=== PATIENT | female | born 1950 | race Caucasian/White ===

== ENCOUNTER 2019-09-16 08:37 | Day surgery (SDC) | payer OTHER ==
--- OUTSIDE RECORDS SUMMARY | 2019-09-16 08:40 | XMS REPORT ---
:1950 [facility] [address] [place] [address] Dr. Alcantara [address] [place] [id number] Care Team Providers Name Role Phone NIRANJAN BRAY Unavailable Unavailable Problems This patient has no known problems. Allergies, Adverse Reactions, Alerts This patient has no known allergies or adverse reactions. Medications This patient has no known medications. Results Test Description Test Time Test Comments Text Results Atomic Results Result Comments MISCELLANEOUS LAB ORDER 2016-10-18 11:43:00 Test Item Value Reference Range Comments SCAN RESULT (test [id number]) IMMUNOGLOBULIN M (IGM)2016-10-14 16:04:00 Test Item Value Reference Range Comments IMMUNOGLOBULIN M (IGM) (BEAKER) (test wgep=292) 78 mg/dL 22-293
[2019-09-16] MEDS ORDERED: CEFAZOLIN/SWI 1gm 1 GM/10 ML SYR ONE (08:45)
[2019-09-16] MEDS ORDERED: Ringers Lactate 1,000 ML IV ONE (08:45)
[2019-09-16 08:59] VITALS: BP 126/69; TEMP 96.9; O2SAT 98
[2019-09-16 08:59] LABS: Potassium 3.8 mmol/L (3.5-5.1)
[2019-09-16] MEDS ORDERED: LIDOCAINE 1% MPF 5 ML VIAL ONE (09:15)
--- NOTE | 2019-09-16 09:17 | RAD REPORT ---
EXAM DESCRIPTION: Lillie Banegas And Lat (2 Views)09/16/2019 8:40 am CLINICAL HISTORY: Preop for temporal artery biopsy COMPARISON: 2017 FINDINGS: Moderate diffuse interstitial lung opacities without change appear chronic The lungs appear clear of acute infiltrate. The heart is normal size IMPRESSION: No acute abnormalities displayed
[2019-09-16] MEDS ORDERED: MIDAZOLAM HCL 2 MG/2 ML INJ ONE (09:31)
[2019-09-16] MEDS ORDERED: propofoL 200 MG/20 ML VIAL IV ONE (09:31)
[2019-09-16] MEDS ORDERED: FENTANYL CITR 100 MCG/2 ML ONE (09:31)
[2019-09-16] MEDS ORDERED: LIDOCAINE 2% MPF 5 ML VIAL ONE (09:36)
[2019-09-16] MEDS ORDERED: ONDANSETRON 4 MG/2 ML VIAL ONE (09:58)
[2019-09-16] MEDS ORDERED: TRAMADOL 37.5mg/APAP 325mg PER TAB ONE (10:42)
--- NOTE | 2019-09-16 11:36 | EKG ---
Test Date: 2019-09-16 Test Time: 08:19:32 Police Manager: EAN MEASUREMENT RESULTS: Intervals: Rate: 64 NE: 182 QRSD: 86 QT: 400 QTc: 412 [place]: P: 60 NE: 182 QRS: 68 T: 66 INTERPRETIVE STATEMENTS: Normal sinus rhythm Possible Left atrial enlargement Borderline ECG No previous ECG available for comparison Electronically Signed On 09-16-19 11:35:53 BAKED AND GRAPHITE INSPECTOR by Pancho Ricardo
--- NOTE | 2019-09-16 19:23 | OP ---
Date of Procedure: 09/16/2019 Surgeon: Fracisco Jeter MD Preoperative Diagnosis: Rule out temporal arteritis, left side vision change. Postoperative Diagnosis: Rule out temporal arteritis, left side vision change. Procedure: Left temporal artery biopsy, Doppler guided. Estimated Blood Loss: Minimal. Specimen: Left temporal artery. Findings: As above. Anesthesia: MAC. Complications: None. Disposition: Patient tolerated the procedure in stable condition, taken to Recovery in good general condition. Procedure In Detail: Patient was brought to the OR and placed in supine position. MAC was begun. P atient was prepped and draped in usual sterile fashion. Doppler device used to isolate a branch of t he temporal artery in the anterior and superior aspect of the left ear and then lidocaine 1% infiltra rebeca locally. A 4 cm incision was made. Subcutaneous tissue was divided and branches of temporal art ping was identified. Proximal and distal control obtained. A 4 cm segment excised sent to Pathology. Then, 4-0 silk was used to tie both ends. Wound irrigated and bleeding controlled with cautery. 4 -0 chromic used to approximate subcutaneous tissue and close the skin. Sterile dressing was applied. Patient was awakened and taken to Recovery in good general condition. /MODL Voice ID: [id number] Report ID: [id number]
--- NOTE | 2019-09-16 19:29 | DS ---
Date of Discharge: 09/16/2019 Patient will go to Day Surgery and home when stable. Disposition: Home. Condition: Stable. Discharge Instructions: Resume home medications and diet. Activity as tolerated. No heavy lifting. Remove outer dressing in 2 days. Shower. Keep wound clean and dry. Keep Steri-Strips on at all t imes. Ultracet 1 tablet p.o. q.4 p.r.n. pain. Follow up in my office in 2 week. Call for appointme nt. Follow with Dr. Lin in 1 week and keep Steri-Strips on at all times. /MODL Voice ID: [id number] Report ID: [id number]
== END 2019-09-16 11:34 | disposition home or self-care (01) ==
LOC: OR 08:37
PROVIDERS: ATTEND Surgery
PROC: 03BT0ZX Excision of Left Temporal Artery, Open Approach, Diagnostic (ICD-10-PCS; principal; 2019-09-16 09:00)
DX: H53.9 Unspecified visual disturbance (principal); K74.5 Biliary cirrhosis, unspecified; K21.9 Gastro-esophageal reflux disease without esophagitis; E07.9 Disorder of thyroid, unspecified; F32.9 Major depressive disorder, single episode, unspecified; Z88.6 Allergy status to analgesic agent; Z80.1 Family history of malignant neoplasm of trachea, bronchus and lung; Z80.3 Family history of malignant neoplasm of breast; Z82.49 Family history of ischemic heart disease and other diseases of the circulatory system
CPT/HCPCS: 93005; 80048; 36415; 88305; 71046; 37609; J2704; J2250; J3010; J0690; J7120; J2405

== ENCOUNTER 2023-07-20 21:44 | Inpatient (IN) | payer OTHER ==
[2023-07-20 22:57] LABS: Absolute Lymphocytes (CBC) 0.8 K/uL (0.7-4.9); Lymphocytes % 7.9 % (15.3-44.8); MCV 94.1 fL (80-100); MPV 7.5 fL (7.6-11.3); Platelets 261 thou/uL (152-406)
[2023-07-20] MEDS ORDERED: VANCOMYCIN 1 GM/VIAL ONE (22:57)
[2023-07-20] MEDS ORDERED: HYDROCORTISONE SUC 100 MG INJ ONE (22:58)
[2023-07-20] MEDS ORDERED: FAMOTIDINE 20 MG/2 ML VIAL IV ONE (22:58)
[2023-07-20] MEDS ORDERED: NA CHLORIDE 0.9% 100 ML ONE (22:58)
[2023-07-20] MEDS ORDERED: NA CHLORIDE 0.9% 1,000 ML ONE (22:58)
[2023-07-20] MEDS ORDERED: NA CHLORIDE 0.9% 250 ML ONE (22:58)
[2023-07-20] MEDS ORDERED: LEVALBUTEROL 1.25 MG/3 ML NEB ONE (22:58)
[2023-07-20] MEDS ORDERED: NA CHLORIDE 0.9% 500 ML ONE (22:58)
[2023-07-20] MEDS ORDERED: CEFTRIAXONE 2000 MG/VIAL ONE (22:58)
[2023-07-20] MEDS ORDERED: Levofloxacin 750mg IV 750 MG/150 ML BAG IV ONE (22:59)
--- NOTE | 2023-07-20 23:00 | EDPHYS ---
Physician Documentation [facility] Name: Katheryn Vance Age: 73 yrs Sex: Female : 1950 Arrival Date: 07/20/2023 Time: 21:44 Bed 2 Private MD: Arturo Ibarra ED Physician Graham Davis HPI: 07/20 22:49 This 73 yrs old Female presents to ER via Wheelchair with complaints of celesitne Cough, Breathing Difficulty, Congestion. 22:49 The patient or guardian reports airway noise, cough, difficulty breathing. Onset: The celestine symptoms/episode began/occurred 5 day(s) ago. Historical: - Allergies: 22:14 Hydrocodone-Acetaminophen; cm10 22:14 Prednisone; cm10 - PMHx: 22:14 Autoimmune disorder; Degenerative disc disease; Depression; GERD; Hypothyroidism; cm10 PRIMARY BILIARY CIRRHOSIS; - Immunization history:: Adult Immunizations up to date. - Social history:: Smoking status: Patient denies any tobacco usage or history of. ROS: 22:51 Constitutional: Negative for fever, chills, and weight loss, Eyes: Negative for injury, celestine pain, redness, and discharge, ENT: Negative for injury, pain, and discharge, Neck: Negative for injury, pain, and swelling, Abdomen/GI: Negative for abdominal pain, nausea, vomiting, diarrhea, and constipation, Back: Negative for injury and pain, : Negative for injury, bleeding, discharge, and swelling, MS/Extremity: Negative for injury and deformity, Skin: Negative for injury, rash, and discoloration, Neuro: Negative for headache, weakness, numbness, tingling, and seizure, Psych: Negative for depression, anxiety, suicide ideation, homicidal ideation, and hallucinations, Allergy/Immunology: Negative for hives, rash, and allergies, Endocrine: Negative for neck swelling, polydipsia, polyuria, polyphagia, and marked weight changes, 22:51 Cardiovascular: Positive for chest pain, palpitations, 22:51 Respiratory: Positive for cough, shortness of breath, at rest. Exam: 22:51 Constitutional: This is a well developed, well nourished patient who is awake, alert, celestine and in no acute distress. Head/Face: Normocephalic, atraumatic. Eyes: Pupils equal round and reactive to light, extra-ocular motions intact. Lids and lashes normal. Conjunctiva and sclera are non-icteric and not injected. Cornea within normal limits. Periorbital areas with no swelling, redness, or edema. ENT: Nares patent. No nasal discharge, no septal abnormalities noted. Tympanic membranes are normal and external auditory canals are clear. Oropharynx with no redness, swelling, or masses, exudates, or evidence of obstruction, uvula midline. Mucous membranes moist. Neck: Trachea midline, no thyromegaly or masses palpated, and no cervical lymphadenopathy. Supple, full range of motion without nuchal rigidity, or vertebral point tenderness. No Meningismus. Chest/axilla: Normal chest wall appearance and motion. Nontender with no deformity. No lesions are appreciated. Abdomen/GI: Soft, non-tender, with normal bowel sounds. No distension or tympany. No guarding or rebound. No evidence of tenderness throughout. Back: No spinal tenderness. No costovertebral tenderness. Full range of motion. Female : Normal external genitalia. Skin: Warm, dry with normal turgor. Normal color with no rashes, no lesions, and no evidence of cellulitis. MS/ Extremity: Pulses equal, no cyanosis. Neurovascular intact. Full, normal range of motion. Neuro: Awake and alert, GCS 15, oriented to person, place, time, and situation. Cranial nerves II-XII grossly intact. Motor strength 5/5 in all extremities. Sensory grossly intact. Cerebellar exam normal. Normal gait. Psych: Awake, alert, with orientation to person, place and time. Behavior, mood, and affect are within normal limits. 22:51 Cardiovascular: Rate: tachycardic, actual rate is 120 bpm, Rhythm: regular, Pulses: Pulses are 4+ in bilateral radial, brachial, femoral, popliteal, posterior tibial and and dorsalis pedis arteries.. Heart sounds: normal, Edema: is not appreciated, JVD: is not appreciated, 22:51 ECG was reviewed by the Attending Physician. 22:56 Respiratory: mild respiratory distress is noted, Respirations: labored breathing, that celestine is mild, Breath sounds: bronchial sounds, that are moderate, are scattered, decreased breath sounds, that are moderate, are scattered, are heard in the right posterior upper lobe and right posterior middle lobe, rhonchi, that are mild, are scattered, Respiratory rate: 22 22:56 Musculoskeletal/extremity: DVT Exam: No signs of deep vein thrombosis. no pain, no swelling, no tenderness, negative Homans' sign noted on exam, no appreciated bluish discoloration, no erythema, no increased warmth, Vital Signs: 22:13 BP 140 / 82; Pulse 131; Resp 22; Temp 99.2; Pulse Ox 84% ; Weight 58.06 kg; Height 5 cm10 ft. 2 in. ; 07/21 00:00 BP 135 / 78; Pulse 131; Resp 38; Pulse Ox 92% on 4 lpm NC; tm6 07/20 22:13 Body Mass Index 23.41 (58.06 kg, 157.48 cm) cm10 [place]lin Coma Score: 07/20 22:56 Eye Response: spontaneous(4). Motor Response: obeys commands(6). Verbal Response: celestine oriented(5). Total: 15. MDM: 22:19 Patient medically screened. celestine 22:54 Data reviewed: vital signs, nurses notes, lab test result(s), EKG, radiologic studies, celestine plain films. Consideration of Admission/Observation Patient was admitted/placed on observation. Escalation of care including admission/observation considered. I considered the following discharge prescriptions or medication management in the emergency department Medications were administered in the Emergency Department. See MAR. Test considered but Not performed: Ultrasound no 2 d ccho. Historians other than the Patient: Spouse/Significant Other: well informed. Care significantly affected by the following chronic conditions: Hypertension, auto immune, ddd, gerd, hypothyroid. 22:56 Counseling: I had a detailed discussion with the patient and/or guardian regarding the [facility] historical points, exam findings, and any diagnostic results supporting the discharge/admit diagnosis, lab results, radiology results, the need for further work-up and treatment in the hospital. 07/20 22:22 Order name: Basic Metabolic Panel; Complete Time: 23:25 [facility] 07/20 22:22 Order name: CBC with Diff; Complete Time: 23: [facility] 07/20 22:22 Order name: LFT's; Complete Time: 23:25 [facility] 07/20 22:22 Order name: Magnesium; Complete Time: 23:25 [facility] 07/20 22:22 Order name: NT PRO-BNP; Complete Time: 23:25 [facility] 07/20 22:22 Order name: PT-INR; Complete Time: 23: [facility] 07/20 22:22 Order name: Troponin HS; Complete Time: 23:25 [facility] 07/20 22:22 Order name: Lipase; Complete Time: 23:25 [facility] 07/20 22:22 Order name: Blood Culture Adult (2) [facility] 07/20 22:22 Order name: Lactate w/ 2H reflex if indic.; Complete Time: 04:32 [facility] 07/20 22:22 Order name: SARS RAPID [facility] 07/20 22:22 Order name: Flu [facility] 07/20 22:29 Order name: COVID-19/FLU A+B; Complete Time: 23:25 07/20 22:57 Order name: ABG; Complete Time: 04:32 [facility] 07/21 04:36 Order name: CBC with Automated Diff; Complete Time: 04:40 [facility] 07/21 04:49 Order name: Troponin High Sensitivity [facility] 07/21 04:50 Order name: Basic Metabolic Panel [facility] 07/21 04:50 Order name: NT PRO-BNP [facility] 07/21 13:30 Order name: Troponin High Sensitivity [facility] 07/20 22:22 Order name: XRAY Chest (1 view) [facility] 07/20 22:48 Order name: CT Chest For PE Angio [facility] 07/20 22:22 Order name: EKG; Complete Time: 22:23 [facility] 07/20 23:04 Order name: CONS Physician Consult [facility] 07/21 04:34 Order name: EKG; Complete Time: 04:35 [facility] 07/20 22:22 Order name: Cardiac monitoring; Complete Time: 22:52 [facility] 07/20 22:22 Order name: EKG - Nurse/Tech; Complete Time: 23:15 [facility] 07/20 22:22 Order name: IV Saline Lock; Complete Time: 22:52 [facility] 07/20 22:22 Order name: Labs collected and sent; Complete Time: 22:52 [facility] 07/20 22:22 Order name: O2 Per Protocol; Complete Time: 22:52 [facility] 07/20 22:22 Order name: O2 Sat Monitoring; Complete Time: 23:15 [facility] 07/20 22:51 Order name: IV Saline Lock - Large Bore; Complete Time: 22:52 [facility] 07/21 04:34 Order name: EKG - Nurse/Tech; Complete Time: 04:38 [facility] EC:51 Rate is 126 beats/min. Rhythm is regular. QRS [place] is Normal. MO interval is normal. celestine QRS interval is normal. QT interval is normal. No Q waves. T waves are Normal. No ST changes noted. Clinical impression: LVH and Sinus tachycardia. Interpreted by me. Reviewed by me. Administered Medications: 22:40 CANCELLED (Duplicate Order): [id number] mg 100 ml IVPB once over 60 mins celestine 23:13 Drug: Solu-CORTEF IVP 100 mg IVP once Route: IVP; Site: left antecubital; rv 07/21 01:39 Follow up: Response: No adverse reaction rv 07/20 23:14 CANCELLED (not appropriate at this timee): acetaminophenliquid 15 mg/kg PO once; not to rv exceed 1000 mg 23:14 Drug: Levalbuterol Inhalation 2.5 mg Inhalation once Route: Inhalation; rv 23:14 Drug: Ipratropium Inhalation Aerosol 0.5 mg Inhalation once Route: Inhalation; rv 07/21 00:49 Follow up: Response: No adverse reaction rv 00:49 Follow up: Response: No adverse reaction rv 07/20 23:14 Drug: Famotidine IVP 20 mg IVP once; dilute with 10 mL 0.9% NaCl; give over 2 minutes rv Route: IVP; Site: left antecubital; 07/21 00:48 Follow up: Response: No adverse reaction rv 07/20 23:14 Drug: levofloxacin IVPB 750 mg 150 ml IVPB once over 90 mins Volume: 150 ml; Route: rv IVPB; Infused Over: 90 mins; Site: right forearm; 07/21 00:54 Follow up: Response: No adverse reaction; IV Status: Completed infusion; IV Intake: rv 150ml 07/20 23:14 Drug: Rocephin IV 2 grams IV at per protocol once; Given slow IV push per pharmaE-Sign rv instructions Route: IV; Rate: per protocol; Site: left antecubital; 07/21 00:48 Follow up: IV Status: Completed infusion; IV Intake: 100ml rv 00:48 Follow up: Response: No adverse reaction rv 07/20 23:14 Drug: NS 0.9% IV 500 ml IV at bolus once Route: IV; Rate: bolus; Site: left antecubital;rv 07/21 00:49 Follow up: IV Status: Completed infusion; IV Intake: 500ml rv 07/20 23:15 Drug: NS 0.9% IV (20 ml/kg) 20 ml/kg IV at 1 bolus once Route: IV; Rate: 1 bolus; Site: rv left antecubital; 07/21 00:49 Follow up: IV Status: Completed infusion; IV Intake: 1100ml rv 00:54 Drug: vancoMYCIN IVPB 1 grams IVPB once over 2 hrs Route: IVPB; Infused Over: 2 hrs; rv Site: right forearm; 01:39 Follow up: IV Status: Infusion continued upon admission rv 01:40 Follow up: IV Status: Infusion continued upon admission rv 00:55 Drug: NS 0.9% IV 1000 ml IV at 125 ml/hr continuous Route: IV; Rate: 125 ml/hr; Site: rv right forearm; 01:40 Follow up: IV Status: Infusion continued upon admission rv 04:46 Drug: Magnesium Sulfate IVPB 1 grams IVPB once over 1 hrs Route: IVPB; Infused Over: 1 tm6 hrs; Site: right antecubital; 04:46 Drug: Digoxin IVP 0.5 mg IVP once Route: IVP; Site: right antecubital; tm6 04:46 Drug: Metoprolol PO 25 mg PO once Route: PO; tm6 Disposition Summary: 07/20/23 22:59 Hospitalization Ordered Notes: Hospitalization Status: Inpatient Admission celestine Provider: Arturo Ibarra celestine Condition: Fair celestine Problem: new celestine Symptoms: have improved celestine Bed/Room Type: Standard celestine Location: Telemetry/MedSurg (Inpatient)(07/21/23 18:24) kb3 Room Assignment: [facility](07/21/23 19:45) kl Diagnosis - Pneumonia due to other specified bacteria - bilateral, right greater than left celestine - Fever, unspecified celestine - Dyspnea celestine Forms: - Medication Reconciliation Form celestine - SBAR form celestine - Leadership Thank You Letter celestine Signatures: Dispatcher [employer] Jenna Hernandez RN RN kl Anderson, Corey, MD MD cha Aguilar, Jose RN RN ja1 Travis Whitmore RN RN rv Hilary Romero RN RN kb3 Elba Pedroza RN RN cm10 Nolan Kingston RN RN tm6 Kristen Workman pm6 Corrections: (The following items were deleted from the chart) 07/20 22:40 22:22 levofloxacin IVPB 500 mg 100 ml IVPB once over 60 mins ordered. celestine celestine 23:14 22:22 Acetaminophen PO Liquid 15 mg/kg PO once; not to exceed 1000 mg ordered. celestine rv 23:51 22:59 Telemetry/MedSurg (Inpatient) celestine pm6 23:51 22:59 celestine pm6 07/21 18:24 07/20 23:51 [facility] ER HOLD pm6 07/21 18:24 07/20 23:51 ERHOLD- pm6 1 07/21 18:24 18:24 Telemetry/MedSurg (Inpatient) ja1 kb3 18:24 18:24 220 ja1 kb3 19:45 18:24 220 kb3 kl
--- NOTE | 2023-07-20 23:00 | ER ---
Nurse's Notes [facility] Name: Katheryn Vance Age: 73 yrs Sex: Female : 1950 Arrival Date: 07/20/2023 Time: 21:44 Bed 2 Private MD: Arturo Ibarra Diagnosis: Pneumonia due to other specified bacteria-bilateral, right greater than left;Fever, unspecified;Dyspnea Presentation: 07/20 22:13 Chief complaint: Patient states: sore throat, cough and shortness of breath onset last cm10 week. pt states that she has been more fatigued. Coronavirus screen: Client denies travel out of the [place] in the last 14 days. Ebola Screen: Patient denies travel to an Ebola-affected area in the 21 days before illness onset. No symptoms or risks identified at this time. Initial Sepsis Screen: Does the patient meet any 2 criteria? No. Patient's initial sepsis screen is negative. Does the patient have a suspected source of infection? No. Patient's initial sepsis screen is negative. Risk Assessment: Do you want to hurt yourself or someone else? Patient reports no desire to harm self or others. Onset of symptoms was July 20, 2023. 22:13 Method Of Arrival: Wheelchair cm10 22:13 Acuity: TERRY 2 cm10 Triage Assessment: 07/21 01:41 General: Appears comfortable. Respiratory: Reports shortness of breath at rest Onset: rv The symptoms/episode began/occurred gradually, the patient has mild shortness of breath. Historical: - Allergies: 07/20 22:14 Hydrocodone-Acetaminophen; cm10 22:14 Prednisone; cm10 - PMHx: 22:14 Autoimmune disorder; Degenerative disc disease; Depression; GERD; Hypothyroidism; cm10 PRIMARY BILIARY CIRRHOSIS; - Immunization history:: Adult Immunizations up to date. - Social history:: Smoking status: Patient denies any tobacco usage or history of. Screenin/08 01:40 [facility] ED Fall Risk Assessment (Adult) History of falling in the last 3 months, rv including since admission No falls in past 3 months (0 pts) Score/Fall Risk Level 0 - 2 = Low Risk Oriented to surroundings, Maintained a safe environment, Educated pt \T\ family on fall prevention, incl call for assistance when getting out of bed, Assessed \T\ reinforced patient's understanding of fall precautions. Abuse screen: Denies threats or abuse. Denies injuries from another. Nutritional screening: No deficits noted. Tuberculosis screening: No symptoms or risk factors identified. Assessment: 07/20 22:30 General: Appears uncomfortable, Behavior is cooperative. Pain: Complains of pain in tm6 chest Quality of pain is described as tightness Is continuous. Neuro: Level of Consciousness is awake, alert, obeys commands, Oriented to person, place, time, situation. Cardiovascular: Capillary refill < 3 seconds Patient's skin is warm and dry. Rhythm is sinus tachycardia. Respiratory: Airway is patent Respiratory effort is labored, Respiratory pattern is tachypnea Breath sounds are diminished. GI: Abdomen is flat, non-distended. : No signs and/or symptoms were reported regarding the genitourinary system. EENT: No signs and/or symptoms were reported regarding the EENT system. Derm: No signs and/or symptoms reported regarding the dermatologic system. Musculoskeletal: No signs and/or symptoms reported regarding the musculoskeletal system. 07/21 00:40 Reassessment: Patient appears in no apparent distress at this time. Patient and/or tm6 family updated on plan of care and expected duration. Pain level reassessed. Patient is alert, oriented x 3, equal unlabored respirations, skin warm/dry/pink. Vital Signs: 07/20 22:13 BP 140 / 82; Pulse 131; Resp 22; Temp 99.2; Pulse Ox 84% ; Weight 58.06 kg; Height 5 cm10 ft. 2 in. ; 07/21 00:00 BP 135 / 78; Pulse 131; Resp 38; Pulse Ox 92% on 4 lpm NC; tm6 07/20 22:13 Body Mass Index 23.41 (58.06 kg, 157.48 cm) cm10 Max Coma Score: 07/20 22:56 Eye Response: spontaneous(4). Motor Response: obeys commands(6). Verbal Response: celestine oriented(5). Total: 15. ED Course: 21:49 Patient arrived in ED. es 21:49 Arturo Ibarra MD is Private Physician. es 22:14 Triage completed. cm10 22:15 Arm band placed on Patient placed in an exam room, on a stretcher, on oxygen. cm10 22:19 Graham Davis MD is Attending Physician. celestine 22:29 Travis Whitmore, CHERYL is Primary Nurse. rv 22:35 Inserted saline lock: 20 gauge in left antecubital area, using aseptic technique. Blood rv collected. 22:41 XRAY Chest (1 view) In Process Unspecified. EDMS 22:50 Inserted saline lock: 20 gauge in right forearm, using aseptic technique. Blood rv collected. 22:58 Arturo Ibarra MD is Hospitalizing Provider. celestine 07/21 00:14 CT Chest For PE Angio In Process Unspecified. EDMS 01:40 Patient has correct armband on for positive identification. Client placed on continuous rv cardiac and pulse oximetry monitoring. NIBP monitoring applied. marine superintendent on. 01:40 No provider procedures requiring assistance completed. Patient admitted, IV remains in rv place. Administered Medications: 07/20 22:40 CANCELLED (Duplicate Order): [id number] mg 100 ml IVPB once over 60 mins celestine 23:13 Drug: Solu-CORTEF IVP 100 mg IVP once Route: IVP; Site: left antecubital; rv 07/21 01:39 Follow up: Response: No adverse reaction rv 07/20 23:14 CANCELLED (not appropriate at this timee): acetaminophenliquid 15 mg/kg PO once; not to rv exceed 1000 mg 23:14 Drug: Levalbuterol Inhalation 2.5 mg Inhalation once Route: Inhalation; rv 23:14 Drug: Ipratropium Inhalation Aerosol 0.5 mg Inhalation once Route: Inhalation; rv 07/21 00:49 Follow up: Response: No adverse reaction rv 00:49 Follow up: Response: No adverse reaction rv 07/20 23:14 Drug: Famotidine IVP 20 mg IVP once; dilute with 10 mL 0.9% NaCl; give over 2 minutes rv Route: IVP; Site: left antecubital; 07/21 00:48 Follow up: Response: No adverse reaction rv 07/20 23:14 Drug: levofloxacin IVPB 750 mg 150 ml IVPB once over 90 mins Volume: 150 ml; Route: rv IVPB; Infused Over: 90 mins; Site: right forearm; 07/21 00:54 Follow up: Response: No adverse reaction; IV Status: Completed infusion; IV Intake: rv 150ml 07/20 23:14 Drug: Rocephin IV 2 grams IV at per protocol once; Given slow IV push per pharmarcy rv instructions Route: IV; Rate: per protocol; Site: left antecubital; 07/21 00:48 Follow up: IV Status: Completed infusion; IV Intake: 100ml rv 00:48 Follow up: Response: No adverse reaction rv 07/20 23:14 Drug: NS 0.9% IV 500 ml IV at bolus once Route: IV; Rate: bolus; Site: left antecubital;rv 07/21 00:49 Follow up: IV Status: Completed infusion; IV Intake: 500ml rv 07/20 23:15 Drug: NS 0.9% IV (20 ml/kg) 20 ml/kg IV at 1 bolus once Route: IV; Rate: 1 bolus; Site: rv left antecubital; 07/21 00:49 Follow up: IV Status: Completed infusion; IV Intake: 1100ml rv 00:54 Drug: vancoMYCIN IVPB 1 grams IVPB once over 2 hrs Route: IVPB; Infused Over: 2 hrs; rv Site: right forearm; 01:39 Follow up: IV Status: Infusion continued upon admission rv 01:40 Follow up: IV Status: Infusion continued upon admission rv 00:55 Drug: NS 0.9% IV 1000 ml IV at 125 ml/hr continuous Route: IV; Rate: 125 ml/hr; Site: rv right forearm; 01:40 Follow up: IV Status: Infusion continued upon admission rv 04:46 Drug: Magnesium Sulfate IVPB 1 grams IVPB once over 1 hrs Route: IVPB; Infused Over: 1 tm6 hrs; Site: right antecubital; 04:46 Drug: Digoxin IVP 0.5 mg IVP once Route: IVP; Site: right antecubital; tm6 04:46 Drug: Metoprolol PO 25 mg PO once Route: PO; tm6 Medication: 01:40 VIS not applicable for this client. rv Intake: 00:48 IV: 100ml; Total: 100ml. rv 00:49 IV: 500ml; Total: 600ml. rv 00:49 IV: 1100ml; Total: 1700ml. rv 00:54 IV: 150ml; Total: 1850ml. rv Outcome: 07/20 22:59 Decision to Hospitalize by Provider. [facility] 07/21 01:42 Admitted to ER Hold. Please see [facility] for further documentation. rv Condition: good Instructed on the need for admit, 20:42 Admitted to Med/surg accompanied by tech, via wheelchair, room 232, with chart, Report rv called to yvonne trevino 20:43 Patient left the ED. rv Signatures: Dispatcher [employer] Graham Wilkins MD MD cha Salyer, Travis Ornelas RN RN rv Elba Pedroza RN RN cm10 Nolan Kingston RN RN tm6 Corrections: (The following items were deleted from the chart) 01:40 01:39 IV Status: Completed infusion rv rv
[2023-07-20 23:05] LABS: Protime INR 1.27
[2023-07-20 23:14] LABS: Albumin 2.5 g/dL (3.4-5.0); Bilirubin Direct 0.2 mg/dL (0-0.2); Bilirubin Indirect, Calculated 0.2 mg/dL (0.2-0.8); Bilirubin Total 0.4 mg/dL (0.2-1.0); Magnesium 1.7 mg/dL (1.6-2.4); Potassium 3.7 mEq/L (3.5-5.1); Protein, Total 7.7 g/dL (6.4-8.2)
[2023-07-20 23:21] LABS: SARS-COV-2 RT PCR NEGATIVE (NEGATIVE)
[2023-07-20 23:25] LABS: Arterial Blood Carboxyhemoglob 1.1 % (0-1.5); Blood Gas Oxyhemoglobin 93.2 % (94-97); Blood O2 Saturation 95.8 % (92-98.5)
[2023-07-21] MEDS: Levofloxacin500mg IV 500 MG/100 ML BAG IV SCH ×2 (01:57→22:46)
[2023-07-21] MEDS ORDERED: IPRATROPIUM BROM 0.5MG/2.5ML NEB PRN (01:57)
[2023-07-21] MEDS ORDERED: ALBUTEROL 2.5 MG/3 ML NEB SOL NEB PRN (01:57)
[2023-07-21] MEDS: NA CHLORIDE 0.9% 1,000 ML IV SCH (01:57)
[2023-07-21 02:44] VITALS: BMI 23.3
[2023-07-21] MEDS ORDERED: NA CHLORIDE 0.9% 1,000 ML ONE (03:08)
[2023-07-21 04:25] LABS: Absolute Lymphocytes (CBC) 0.5 K/uL (0.7-4.9); Hematocrit 28.2 % (36.0-45.0); Lymphocytes % 5.4 % (15.3-44.8); MCV 94.4 fL (80-100); MPV 7.7 fL (7.6-11.3); Platelets 226 thou/uL (152-406); RBC Red Blood Cell Count 2.98 M/uL (3.86-4.86)
[2023-07-21] MEDS ORDERED: MAGNESIUM SULFATE 1 gm IVPB 1 GM/100 ML BAG IV ONE (04:40)
[2023-07-21] MEDS ORDERED: DIGOXIN 0.25 MG/ML AMP ONE (04:41)
[2023-07-21] MEDS ORDERED: METOPROLOL TAR 25 MG TAB ONE ×2 (04:41→18:22)
[2023-07-21 04:48] LABS: Potassium 3.6 mEq/L (3.5-5.1)
--- NOTE | 2023-07-21 07:53 | RAD REPORT ---
EXAM DESCRIPTION: Chest Single View CLINICAL HISTORY: 3 years Female, COUGH COMPARISON: Chest radiograph dated 01/14/2021 IMPRESSION: Bilateral interstitial opacities, right worse than left concerning for pneumonia. Chronic lung changes. No pleural effusion. No pneumothorax. Cardiomediastinal silhouette is within normal limits. No acute osseous abnormality. Osteopenia. Electronically signed by: Kavin Theodore DO 07/20/2023 11:21 PM HVAC R INSTRUCTOR Due to temporary technical issues with the PACS/Fluency reporting system, reports are being signed by the in house radiologist without review as a courtesy to ensure prompt reporting. The interpreting r adiologist is fully responsible for the content of the report.
--- NOTE | 2023-07-21 07:54 | RAD REPORT ---
EXAM DESCRIPTION: CT Angiography Chest With Intravenous Contrast CLINICAL HISTORY: Chest pain;Cough;Dyspnea TECHNIQUE: Axial computed tomographic angiography images of the chest with intravenous contrast. S agittal and coronal reformatted images were created and reviewed. This CT exam was performed using one or more of the following dose reduction techniques: automated exposure control, adjustment of t he mA and/or kV according to patient size, and/or use of iterative reconstruction technique. MIP reconstructed images were created and reviewed. COMPARISON: No relevant prior studies available. FINDINGS: Artifacts: Motion artifact degrades image quality and limits evaluation of segmental and subsegmental vessels. Pulmonary arteries: Unremarkable. No central pulmonary arterial filling defects. Aorta: Mild atherosclerotic disease. No thoracic aortic aneurysm. Lungs: Peripheral fibrotic changes bilaterally. Multifocal confluent groundglass opacities and cons olidative changes with air bronchograms within the lungs bilaterally, right greater than left. Pleural space: Unremarkable. No significant effusion. No pneumothorax. Heart: The heart is mildly enlarged. Coronary artery and mitral annular calcification. No signifi cant pericardial effusion. No evidence of RV dysfunction. Mediastinum: Mediastinal and bilateral hilar lymph nodes measuring up to 17 mm in short axis. Bones/joints: Multilevel spondylosis. Remote left third through sixth rib fractures. No acute fract ure. No dislocation. Soft tissues: Unremarkable. Lymph nodes: See above. IMPRESSION: 1. Motion artifact degrades image quality and limits evaluation of segmental and subse gmental vessels. No central pulmonary embolic disease. 2. Extensive multifocal infiltrates bilaterally, right greater than left. 3. Other findings as above. Electronically signed by: Carmen Ramos MD 07/21/2023 12:26 AM CURTAIN CUTTER HAND Due to temporary technical issues with the PACS/Fluency reporting system, reports are being signed by the in house radiologist without review as a courtesy to ensure prompt reporting. The interpreting r adiologist is fully responsible for the content of the report.
[2023-07-21] MEDS: PNEUMOCOCCAL VACCINE 0.5 ML IMVAC ONE (08:00)
[2023-07-21] MEDS: FUROSEMIDE 20 MG/ 2ML VIAL IV ONE (08:30)
[2023-07-21] MEDS: FAMOTIDINE 20 MG/2 ML VIAL IV SCH (08:37)
[2023-07-21] MEDS ORDERED: FUROSEMIDE 20 MG/ 2ML VIAL ONE (08:39)
[2023-07-21] MEDS ORDERED: FAMOTIDINE 20 MG/2 ML VIAL IV ONE (08:39)
[2023-07-21] MEDS ORDERED: PNEUMOCOCCAL VACCINE 0.5 ML IMVAC ONE (08:54)
[2023-07-21] MEDS ORDERED: CEFTRIAXONE 1,000 MG in NA CHLORIDE 0.9% 50 ML IVPB SCH (09:00)
--- NOTE | 2023-07-21 11:55 | CON ---
Date of Consultation: 07/21/2023 Reason For Consultation: Elevated troponin plus atrial fibrillation. History Of Present Illness: A 73-year-old female with past medical history of acid reflux, hypothyro idism, osteoarthritis, presented to the emergency room because of upper respiratory tract infection s ymptoms with cough and congestion and nasal drainage. Mild shortness of breath. No chest pain, and upon arrival in the emergency room, she was in atrial fibrillation and she converted to sinus rhythm. Currently has been in sinus rhythm and denies having any cardiac history. Past Medical History: As outlined above in HPI. Medications: Refer to reconciliation sheet for detailed list. Allergies: NO KNOWN DRUG ALLERGIES. Family History: No mature coronary artery disease or cancer. Social History: She does not smoke or drink. Does not use any drugs. Review of Systems: All systems reviewed and they were negative except as mentioned in the HPI. Physical Examination: Vital Signs: Reviewed. Head and Neck: Pupils are equal, reactive to light. Intact eye movements. No JVD. No cervical lym phadenopathy. Neck is supple. Thyroid is not enlarged. Lungs: Clear to auscultation bilaterally. No rhonchi, rales, or crackles. No accessory muscle use. Heart: Regular rate and rhythm. No extra sounds. Abdomen: Soft, nontender. Bowel sounds positive. No organomegaly. No masses or hernia. No rigidi ty or rebound. Extremities: No edema, clubbing, or cyanosis. Intact pulses. Skin: No rashes. Neurologic: Alert, awake, oriented x3. No acute focal deficits appreciated. Lymph Nodes: No cervical or axillary lymphadenopathy. Investigations: Troponin first one was negative. Sodium normal at 118, BUN 12, creatinine 0.62, and hemoglobin is 9.7. Assessment/recommendation: 1.Elevated troponin. No chest pain. Trend 2 more sets please and this is likely demand ischemia to the upper respiratory tract infection. Obtain an echo and the patient will need a stress test once her condition is more stable once her upper respiratory tract infection symptoms are resolved. Unles s the troponin increases substantially, this can be done as an outpatient. 2.Elevated NT-proBNP. Obtain an echo. 3.Upper respiratory tract infection and clinically stable. 4.Atrial fibrillation. There was a transient episode of atrial fibrillation. Recommend to put the patient on low-dose metoprolol 12.5 mg twice a day and also Eliquis 5 mg twice a day and obtain an ec ho. /DAVIS Voice ID: [id number] Report ID: [id number]
--- NOTE | 2023-07-21 12:10 | P.CNS ---
Date of Consult: 07/21/23 Reason for Consult: Bilateral pneumonia Chief Complaint: Shortness of breath History of Present Illness: Patient is 73 years of age very pleasant lady was having problems since last Friday started complaining of coughing shortness of breath planing of some chest tightness and it appeared in the hospital and was found to have extensive bilateral pneumonia x-ray looked worse compared to the patient denies any fever or chills not coughing up any phlegm quit smoking in the 1980s no cardiac history Allergies prednisone Adverse Reaction (Intermediate, Verified 07/21/23 08:20) agitation Hydrocodone-Acetaminophe Adverse Reaction (Uncoded 09/16/19 08:15) Itching Home Medications: Ascorbic Acid [Vitamin C] 500 mg PO DAILY 09/16/19 Budesonide [Budesonide EC] 3 mg PO TID 09/16/19 Calcium Carbonate [Calcium] 1,200 mg PO DAILY 09/16/19 Cholecalciferol (Vitamin D3) [Vitamin D3] 2,000 unit PO DAILY 09/16/19 Cyanocobalamin (Vitamin B-12) [Vitamin B-12] 2,500 mcg SL DAILY 09/16/19 Docosahexanoic AC/Epa [Fish Oil 1,000 MG CAP] 500 mg PO BID 09/16/19 Fluoxetine HCl 20 mg PO DAILY 09/16/19 Levothyroxine [Synthroid] 50 mcg PO [id number] 09/16/19 Multivit-Min/FA/Lycopen/Lutein [Centrum Silver Tablet] 1 each PO DAILY 09/16/19 Pantoprazole [Protonix Tab] 40 mg PO DAILY 09/16/19 Trazodone HCl 50 mg PO DAILY 09/16/19 Ubidecarenone/Vit E Acet [Co Q-10 100 mg Softgel] 2 each PO DAILY 09/16/19 Vitamin B Complex/Folic Acid [Super B Maxi Complex Caplet] 0.4 mg PO DAILY 09/16/19 Vitamin E (Dl,Tocopheryl Acet) [Vitamin E] 1,000 unit PO DAILY 09/16/19 ursodioL [Ursodiol] 300 mg PO QID 09/16/19 - Past Medical/Surgical History -: Depression -: GERD -: Hypothyroidism -: Primary biliary cirrhosis - Social History Place of Residence: Home Review of Systems 10-point ROS is otherwise unremarkable General: Weakness Respiratory: Cough, Shortness of Breath Physical Examination Temp Pulse Resp BP Pulse Ox 98.1 F 105 H 17 118/62 96 07/21/23 07:51 07/21/23 08:30 07/21/23 07:51 07/21/23 08:30 07/21/23 07:51 General: Alert, Oriented x3 Respiratory: Crackles/rales Cardiovascular: No edema (Tensive crackle), Normal pulses, Regular rate/rhythm, Normal S1 S2 Gastrointestinal: Normal bowel sounds, Soft and benign Musculoskeletal: No clubbing, No swelling Neurological: Normal speech, Normal strength at 5/5 x4 extr Laboratory Data (last 24 hrs) 07/20/23 07/20/23 07/20/23 22:35 22:35 22:35 WBC 9.50 Hgb 10.9 L Hct 32.0 L Plt Count 261 PT 13.9 H INR 1.27 Sodium 133 L Potassium 3.7 BUN 16 Creatinine 0.78 Glucose 145 H Magnesium 1.7 Total Bilirubin 0.4 AST 17 ALT 16 Alkaline Phosphatase 83 Lipase 38 - Problems (1) Bilateral pneumonia Current Visit: Yes Status: Acute Plan: Patient is 73 years of age has been sick for the past week with extensive bilateral pneumonia however is alert responsive does not appear to be in any distress is quite remarkable considering the appearance on her chest x-ray patient is mildly hypoxic normal white count mildly anemic oxygenation is 96% on 3 L most likely an atypical pneumonia type picture will give a trial of steroids patient's troponins are elevated no prior history of coronary artery disease most likely secondary to demand ischemia Qualifiers: Pneumonia type: due to unspecified organism
--- NOTE | 2023-07-21 12:19 | EKG ---
Test Date: 2023-07-21 Test Time: 04:38:05 Building Illuminating Engineer: RV MEASUREMENT RESULTS: Intervals: Rate: 120 OR: 180 QRSD: 78 QT: 310 QTc: 438 [place]: P: 61 OR: 180 QRS: 84 T: 51 INTERPRETIVE STATEMENTS: Sinus tachycardia Otherwise normal ECG Compared to ECG 07/20/2023 22:24:32 Left ventricular hypertrophy no longer present Electronically Signed On 07-21-23 12:18:33 QUILL PICKING MACHINE OPERATOR by Hu Banks
--- NOTE | 2023-07-21 12:21 | EKG ---
Test Date: 2023-07-20 Test Time: 22:24:32 Graduate Engineer: INÉS MEASUREMENT RESULTS: Intervals: Rate: 126 [place]: 186 QRSD: 78 QT: 284 QTc: 411 [place]: P: 60 [place]: 186 QRS: 72 T: 44 INTERPRETIVE STATEMENTS: Sinus tachycardia Minimal voltage criteria for LVH, may be normal variant Borderline ECG Compared to ECG 09/16/2019 08:19:32 Left ventricular hypertrophy now present Sinus rhythm no longer present Electronically Signed On 07-21-23 12:18:59 WASTEWATER ANALYST by Hu Banks
[2023-07-21] MEDS ORDERED: dexAMETHasone 4 MG/ML VIAL ONE (12:43)
[2023-07-21] MEDS: dexAMETHasone 4 MG/ML VIAL IV SCH (13:00)
--- NOTE | 2023-07-21 14:34 | ECHO ---
HEIGHT: 5 ft 2 in WEIGHT: 127 lb 13.89 oz DATE OF STUDY: 07/21/[address]: Arturo Ibarra MD 2-DIMENSIONAL: YES M.MODE: YES DOPPLER: YES COLOR FLOW: YES TDS: PORTABLE: YES DEFINITY: BUBBLE STUDY: DIAGNOSIS: ABNORMAL TROPONIN CARDIAC HISTORY: CATHERIZATION: SURGERY: PROSTHETIC VALVE: PACEMAKER: MEASUREMENTS (cm) DIASTOLIC (NORMALS) SYSTOLIC (NORMALS) IVSd 1.1 (0.6-1.2) LA Diam 2.6 (1.9-4.0) LVEF 68% LVIDd 3.9 (3.5-5.7) LVIDs 2.4 (2.0-3.5) %FS 37% LVPWd 1.2 (0.6-1.2) Ao Diam 2.9 (2.0-3.7) 2 DIMENSIONAL ASSESSMENT: RIGHT ATRIUM: NORMAL LEFT ATRIUM: NORMAL RIGHT VENTRICLE: NORMAL LEFT VENTRICLE: LEFT VENTRICULAR HYPERTROPHY TRICUSPID VALVE: MILD TRICUSPID REGURGITATION MITRAL VALVE: MITRAL ANNULAR CALCIFICATION WITH MILD MITRAL REGURGITATION PULMONIC VALVE: NORMAL AORTIC VALVE: NORMAL PERICARDIAL EFFUSION: NONE AORTIC ROOT: NORMAL LEFT VENTRICULAR WALL MOTION: NORMAL DOPPLER/COLOR FLOW: SEE BELOW COMMENTS: 1. NORMAL LEFT VENTRICULAR EJECTION FRACTION 60-65% WITH NORMAL WALL MOTION 2. GRADE I DIASTOLIC DYSFUNCTION 3. MODERATE MITRAL ANNULAR CALCIFICATION WITH MILD MITRAL REGURGITATION 4. MILD TRICUSPID REGURGITATION 5. MILD CONCENTRIC LEFT VENTRICULAR HYPERTROPHY TECHNOLOGIST: GEORGINA BENAVIDES
[2023-07-21] MEDS ORDERED: ENOXAPARIN 40 MG/0.4 ML SQ SCH (17:00)
[2023-07-21] MEDS: METOPROLOL TAR 25 MG TAB PO SCH (18:00)
[2023-07-21] MEDS: ursodioL 300 MG CAP PO SCH (21:45)
[2023-07-21] MEDS: APIXABAN 5 MG TABLET PO SCH (22:29)
[2023-07-22] MEDS: LEVOTHYROXINE SOD 0.05 MG TABLET PO SCH (06:14)
--- NOTE | 2023-07-22 07:10 | HP ---
Date of Admission: 07/20/2023 Chief Complaint: Cough, congestion, shortness of breath. History Of Present Illness: This is a 73-year-old very pleasant female patient who came into the [facility] with few days history of cough, congestion, coughing up some mucus, and feeling weak, tir ed, short of breath. After she was evaluated in the emergency room, she was admitted to the hospital with pneumonia problem. She denies any vomiting or diarrhea. Allergies: TO HYDROCODONE CAUSING ITCHING. Medications: Budesonide 3 mg takes 3 capsules daily, fluoxetine 20 mg daily, Flonase nasal spray 1 s pray each nostril 2 times a day, gabapentin 300 mg 4 times a day, levothyroxine 75 mcg daily, pantopr azole 40 mg daily, trazodone 50 mg daily at bedtime, and Ursodiol 300 mg, she takes 2 capsules in the morning and 1 in the evening. Review of Systems: Respiratory: As mentioned above. All other systems reviewed and negative. Past Medical History: Significant for hyperlipidemia, hypothyroidism, gastroesophageal reflux diseas e, autoimmune hepatitis, allergic rhinitis, primary biliary cirrhosis, temporal arteritis, polymyalgi a rheumatica, depression, osteoporosis. Past Surgical History: Tonsillectomy, septoplasty, lumpectomy of the right breast and it was benign, cholecystectomy, tubal ligation, cervical spine surgery, lumbar spine surgery, foot surgery, wrist s urgery. Family History: Significant for father , had lung cancer. Mother , had heart disease. Sibl ings with high cholesterol, coronary artery disease, hypertension, and sister with breast cancer . Social History: Prior history of smoking, not at present time. Use of alcohol negative. Physical Examination: Vital Signs: Temperature 98.8, pulse 123, respiratory rate 26, blood pressure 128/81, oxygen saturat ion 98%, height 5 feet 2 inches, weight 127 pounds. General: The patient appears weaker than normal. Not in any respiratory distress. Awake, alert, ans wering questions appropriately. . HEENT: Head atraumatic, normocephalic. Conjunctivae nonerythematous. Sclerae white. Mouth, no thr ush or edema noted. Ears/Nose, no mass, lesion, discharge noted. Neck: Supple. No JVD, lymph nodes, bruit, thyromegaly noted. Lungs: Presence of rales in left lower lobe region. Not using any accessory muscles of respiration. Heart: Normal heart sounds, no murmur or gallop. Abdomen: Soft, bowel sounds normal. No guarding, rigidity, tenderness, mass, hepatosplenomegaly, dis tention, or bruit noted. Extremities: No leg edema. No calf tenderness. Skin: No rash, ulcer, cellulitis. Lymphatics: No lymph node enlargement in neck, supraclavicular, infraclavicular region. Neuro: No focal neurological deficit. Chest: Unremarkable. External Genitalia: Deferred. Rectal: Deferred. Laboratory Data: Yesterday, white count 9.5, hemoglobin 10.9, platelets 261. This morning, white co unt 9.2, hemoglobin 9.7, and a platelet count of 226. Arterial blood gas; pH 7.44, pCO2 36.4, PO2 78 .2, oxygen saturation 95.8% on 50% FiO2. Yesterday, sodium 133, potassium 3.7, chloride 101, bicarb 28, BUN 16, creatinine 0.78, glucose 145. Liver function tests unremarkable. Initial troponin 51. Lipase 38. This morning, troponin 118. Sodium 135, potassium 3.6, chloride 106, bicarb 24, BUN 12, creatinine 0.62, glucose 166. Influenza A, B, and COVID-19 test negative. Chest x-ray shows evidenc e of infiltrate in lower lung region. Impression: 1.Pneumonia. 2.Acute respiratory failure with hypoxia, secondary to above. 3.Abnormal cardiac enzymes. 4.Primary biliary cirrhosis. 5.Autoimmune hepatitis. 6.Hypothyroidism. 7.Hypertension. 8.Hyperlipidemia. 9.Gastroesophageal reflux disease. Plan: We will go ahead and admit the patient to hospital for further evaluation and management of th is problem. The patient is appropriate for inpatient and [facility] For pneumonia, we will go ahead and continue antibiotic as it was started in the emergency room a nd Pulmonary consultation was requested from Dr. Hernandez. We will repeat chest x-ray at appropriate time. At this time, for acute respiratory failure with hypoxia, the patient requires oxygen replace ment therapy, which we will continue that, but as the time goes, we are expecting to wean off oxygen as her condition improves. For hypothyroidism, we will continue her levothyroxine supplement and no need for further intervention. She takes trazodone for insomnia and we will continue that as per ord er. For her hyperlipidemia, she is not on any medication and no need for any further intervention. For gastroesophageal reflux disease, we will continue her pantoprazole as per order. Details and kaci n of treatment discussed with her. I will see her tomorrow for followup. For DVT prophylaxis, Loven ox will be given as per order. DENIS/MODL Voice ID: [id number]
--- NOTE | 2023-07-22 07:35 | RAD REPORT ---
EXAM DESCRIPTION: [facility] Single View07/22/2023 4:18 am CLINICAL HISTORY: Chest pain COMPARISON: July 2023 FINDINGS: No significant change marked right and [id number] left alveolar opacities within the lungs. Heart is normal size IMPRESSION: Bilateral alveolar lung opacities right worse left without significant change probably p neumonia
[2023-07-22] MEDS ORDERED: ursodioL 300 MG CAP PO SCH (08:00)
[2023-07-22] MEDS: BUDESONIDE, MICRONIZED 3 MG CAP PO SCH (09:00)
[2023-07-22] MEDS: GABAPENTIN 300 MG CAP PO SCH (09:00)
[2023-07-22] MEDS: Levofloxacin 750mg IV 750 MG/150 ML BAG IV SCH (10:07)
[2023-07-22] MEDS: FUROSEMIDE 20 MG/ 2ML VIAL IV SCH (10:08)
[2023-07-22] MEDS: FLUOXETINE 20 MG CAP PO SCH (10:10)
--- NOTE | 2023-07-22 11:49 | P.PN ---
Subjective Date of Service: 07/22/23 Chief Complaint: Bilateral pneumonia No change in patient's condition still complaining of shortness of breath and has extensive changes on the chest x-ray Review of Systems 10-point ROS is otherwise unremarkable General: Weakness Respiratory: Cough, Shortness of Breath Physical Examination - Vital Signs Temperature: 97.5 F Blood Pressure: 114/69 Pulse: 77 Respirations: 18 Pulse Ox (%): 90 - Physical Exam General: Alert, Oriented x3 Respiratory: Crackles/rales (Crackles bilateral) Cardiovascular: No edema, Regular rate/rhythm, Normal S1 S2 Assessment And Plan - Current Problems (Diagnosis) (1) Bilateral pneumonia Current Visit: Yes Status: Acute Plan: Patient admitted with extensive bilateral pneumonia significant interstitial changes CT scan reviewed appears to have non-STEMI no EKG changes suggestive of acute coronary artery disease echocardiogram shows grade 1 diastolic dysfunction cultures all negative patient continues to remain hypoxic most likely atypical pneumonia may need a bronchoscopy continue with steroids I will increase the dose of levofloxacin to 750 continue with low-dose diuretic Qualifiers: Pneumonia type: due to unspecified organism
[2023-07-22] MEDS: ACETAMINOPHEN 325 MG TABLET PO PRN (12:13)
[2023-07-22] MEDS: GABAPENTIN 100 MG CAP PO SCH ×2 (14:39→21:00)
[2023-07-22] MEDS: METOPROLOL TAR 25 MG TAB PO SCH (18:28)
--- NOTE | 2023-07-22 19:00 | PN ---
Date of Progress Note: 07/22/2023 Subjective: Seen by bedside. Doing clinically better, still mildly short of breath. Review of Systems: No chest pain. Mild shortness of breath and cough. No nausea, vomiting, diarrhea. All other system s reviewed are negative. Objective: Vital signs: Reviewed. Head and Neck: Pupils are equal, reactive to light. Intact eye movements. Neck: No JVD. No cervical lymphadenopathy. Neck is supple. Thyroid is not enlarged. Lungs: Clear to auscultation bilaterally. No rhonchi, rales, or crackles. No accessory muscle use. Heart: Regular rate and rhythm. No extra sounds. Abdomen: Soft, nontender. Bowel sounds positive. No organomegaly. No masses or hernia. No rigidi ty or rebound. Extremities: No edema, clubbing, cyanosis. Intact pulses. Skin: No rash. Neurologic: Alert, awake, oriented x3. No acute focal deficits appreciated. Investigations: Her troponin is down to 71. Assessment/recommendation: 1.Elevated troponin. This is demand ischemia. No chest pain. Plan for outpatient stress test. 2.Atrial fibrillation with rapid ventricular response and she converted to sinus rhythm. Increase m etoprolol to 25 mg twice a day as the heart rate is slightly high and continue Eliquis and please obtain an echo. SR/MODL Voice ID: [id number] Report ID: [id number]
--- NOTE | 2023-07-22 19:45 | PN ---
Date of Progress Note: 07/22/2023 Subjective: Patient was seen this morning for followup. She was sitting at bedside. Her wa s with her in the room on nasal cannula oxygen, not in any respiratory distress. Denies any new comp laints. Overall feels little better today than yesterday. Objective: Vital Signs: Reviewed. HEENT: Unremarkable. Lungs: Bilateral good equal air entry. Presence of rales noted in the right mid and lower lung fiel ds. Not using accessory muscles of respiration. Heart: Sounds normal. Abdomen: Soft. Bowel sounds normal. No guarding, rigidity, tenderness, distention. Extremities: No leg edema. Imaging: Chest x-ray from today continues to show pneumonia. No significant change compared to yest antonietta's chest x-ray. Impression: 1.Pneumonia. 2.Paroxysmal atrial fibrillation. Plan: Pulmonary and Cardiology consultation are appreciated. Dr. Banks from Cardiology service has started her on Eliquis because of the paroxysmal atrial fibrillation, which was noted when she came into emergency room. We will continue to follow with Dr. Banks. Echocardiogram done yesterday show s normal ejection fraction of 68%, moderate mitral annular calcification with mild mitral regurgitati on, diastolic dysfunction, mild concentric left ventricular hypertrophy and mild tricuspid regurgitat ion. We will go ahead and continue antibiotic, which is Levaquin. Continue to follow with Dr. Hilda btucher from pulmonary service and details and plan of treatment discussed with the patient. I will see her tomorrow for followup. We will repeat blood work tomorrow morning. DENIS/MODL Voice ID: [id number] Report ID: [id number]
[2023-07-22] MEDS: TRAZODONE 50 MG TABLET PO SCH (20:45)
[2023-07-22] MEDS: FUROSEMIDE 20 MG/ 2ML VIAL IV ONE (21:53)
[2023-07-23 03:48] LABS: Hematocrit 31.3 % (36.0-45.0); Lymphocytes % 7.5 % (15.3-44.8); MCV 93.1 fL (80-100); MPV 7.6 fL (7.6-11.3); Platelets 362 thou/uL (152-406); RBC Red Blood Cell Count 3.36 M/uL (3.86-4.86)
[2023-07-23 04:06] LABS: Magnesium 2.2 mg/dL (1.6-2.4); Potassium 3.1 mEq/L (3.5-5.1); Thyroid Stimulating Hormone 0.657 uIU/mL (0.358-3.740)
--- NOTE | 2023-07-23 09:13 | RAD REPORT ---
[facility]AM DESCRIPTION[facility] 4:56 am CLINICAL HISTORY: Pneumonia COMPARISON: Chest Single View dated 07/22/2023; Chest Single View dated 07/20/2023; Chest Pa And Lat (2 Views) dated 08/17/2020; Chest Pa And Lat (2 Views) dated 09/16/2019 TECHNIQUE: Portable AP view of the chest. FINDINGS: Patchy bilateral fluffy and interstitial opacities, with partial improvement particularly in the right upper to mid lung peripheral dominant opacities. No pneumothorax or effusion. The cardi omediastinal contours are unremarkable. IMPRESSION: Partial improvement as above, which may reflect improving multifocal pneumonia.
[2023-07-23] MEDS: POTASSIUM 25 MEQ EFFERV TAB PO ONE (09:54)
--- NOTE | 2023-07-23 12:37 | P.PN ---
Subjective Date of Service: 07/23/23 Chief Complaint: Bilateral pneumonia Patient's condition worsened last night requiring BiPAP with short of breath coughing no change Review of Systems General: Weakness Respiratory: Cough, Shortness of Breath Physical Examination - Vital Signs Temperature: 98.5 F Blood Pressure: 128/65 Pulse: 87 Respirations: 36 Pulse Ox (%): 93 - Physical Exam General: Alert, Oriented x3 Respiratory: Crackles/rales Cardiovascular: No edema (Bilateral crackles), Regular rate/rhythm Gastrointestinal: Normal bowel sounds, Soft and benign Musculoskeletal: No clubbing, No swelling Assessment And Plan - Current Problems (Diagnosis) (1) Bilateral pneumonia Current Visit: Yes Status: Acute Plan: Patient admitted with bilateral pneumonia requiring BiPAP with changed to high flow oxygen diffuse interstitial changes continue with steroids antibiotics diuretic Qualifiers: Pneumonia type: due to unspecified organism
[2023-07-24 04:05] LABS: Potassium 3.6 mEq/L (3.5-5.1)
--- NOTE | 2023-07-24 06:31 | PN ---
Date of Progress Note: 07/23/2023 Subjective: The patient was seen this morning for followup, no new complaints or problems reported b y the patient. She was on BiPAP this morning when I saw her and was tolerating it very well. BiPAP was started last night. Her was with her at bedside. Objective: Vital Signs: Reviewed. HEENT: Unremarkable. Lungs: Bilateral good equal air entry. Clear to auscultation except very fine rales noted in bilate ral lungs. Overall, lung sounds better than before. Heart: Sounds normal. Abdomen: Soft, bowel sounds normal. No guarding, rigidity, tenderness, distention. Extremities: No leg edema. Laboratory Data: White count 13.4, hemoglobin 10.7, platelets 362. Sodium 138, potassium 3.1, chlor toño 105, bicarb 28, BUN 25, creatinine 0.75, glucose 147. TSH 0.657. Impression: 1.Pneumonia. 2.Acute respiratory failure with hypoxia. 3.Hypokalemia. 4.Anemia. 5.Acute respiratory failure with hypoxia. Plan: We will go ahead and continue oxygen replacement therapy along with BiPAP support as patient i s currently getting it. She is tolerating it very well and her condition has stabilized. We will co ntinue antibiotic as we are giving her and also continue steroid. Last night when nurse contacted me when her oxygen requirement went up from 2 L to 6 L/minute, Lasix 20 mg IV x1 dose was ordered and w e will follow up on chest x-ray. Continue to follow with Dr. Hernandez. Continue current DVT prophylaxis and I will see her tomorrow for followup. Replace potassium per ord er. DENIS/MODL Voice ID: [id number] Report ID: [id number]
--- NOTE | 2023-07-24 07:07 | RAD REPORT ---
EXAM DESCRIPTION: [facility] Single View07/24/2023 5:01 am CLINICAL HISTORY: Chest pain COMPARISON: July 23, 2023 FINDINGS: Mild worsening in diffuse bilateral alveolar opacities. The heart is normal size IMPRESSION: Mild worsening in diffuse bilateral alveolar opacities may represent pneumonia
[2023-07-24] MEDS: POTASSIUM CL SA 10 MEQ TAB PO ONE (09:35)
--- NOTE | 2023-07-24 11:48 | P.PN ---
Subjective Date of Service: 07/24/23 Chief Complaint: Bilateral pneumonia Condition remained stable still requiring high concentrations of oxygen still short of breath and coughing mitten use of BiPAP Review of Systems General: Weakness Respiratory: Cough, Shortness of Breath Physical Examination - Vital Signs Temperature: 97.1 F Blood Pressure: 100/54 Pulse: 69 Respirations: 24 Pulse Ox (%): 96 - Physical Exam General: Alert, Oriented x3 Respiratory: Crackles/rales (Bilateral) Cardiovascular: No edema, Regular rate/rhythm, Normal S1 S2 Assessment And Plan - Current Problems (Diagnosis) (1) Bilateral pneumonia Current Visit: Yes Status: Acute Plan: Patient admitted with bilateral pneumonia respiratory failure will add doxycycline has diffuse bilateral pneumonia no change in present medications continue with diuretics steroids since condition seems to be stabilizing although chest x-ray may take a while to improve trial of Vapotherm Qualifiers: Pneumonia type: due to unspecified organism
[2023-07-24] MEDS: DOXYCYCLINE 100 MG in NA CHLORIDE 0.9% 100 ML IVPB SCH (16:39)
--- NOTE | 2023-07-24 20:16 | PN ---
Date of Progress Note: 07/24/2023 Subjective: The patient was seen this morning for followup. No new complaints or problems reported by the patient, lying in bed, not in any distress. She was on nasal cannula oxygen all day and last night until early this morning. She was placed back on BiPAP because of hypoxia. No new problems or complaints reported. Objective: Vital Signs: Reviewed. HEENT: Unremarkable. Lungs: Bilateral good equal air entry. Presence of rales noted, unchanged from yesterday. Heart: Sounds normal. Abdomen: Soft. Bowel sounds normal. No guarding, rigidity, tenderness, distention. Extremities: No leg edema. Laboratory Data: Sodium 138, potassium 3.6, chloride 104, bicarb 29, BUN 20, creatinine 0.66, glucos e 142. Chest x-ray shows slight worsening of pneumonia today compared to yesterday's x-ray. Impression: 1.Pneumonia. 2.Acute respiratory failure with hypoxia. Plan: We will go ahead and continue oxygen replacement therapy. Continue BiPAP support as she needs it. Continue current DVT prophylaxis with Lovenox. The patient is on Levaquin, and I did call Dr. Hernandez and discussed details this morning. Considering the patient has not responded quite as well to Levaquin, we decided to change antibiotic to doxycycline and cefepime. We will see how she responds to that, and I will see her tomorrow for followup. DENIS/MODL Voice ID: [id number] Report ID: [id number]
--- NOTE | 2023-07-25 07:11 | RAD REPORT ---
EXAM DESCRIPTION: RAD - Chest Single View - 07/25/2023 4:29 am CLINICAL HISTORY: Pneumonia COMPARISON: Chest Single View dated 07/24/2023; Chest Single View dated 07/23/2023; Chest Single View dated 07/22/2023; Chest Single View dated 07/20/2023; Chest For Pe Angio dated 07/21/2023 FINDINGS: Lines: None. Lungs: Widespread interstitial airspace disease Pleural: No significant pleural effusions or pneumothorax. Cardiac: Similar size and configuration. Mediastinum: Within normal limits. Bones: ACDF in the cervical spine. Other: None IMPRESSION: No significant change compared with 07/24/2023 with findings that likely represent multi focal pneumonia.
[2023-07-25 07:50] LABS: Absolute Lymphocytes (CBC) 1.6 K/uL (0.7-4.9); Hematocrit 31.3 % (36.0-45.0); Lymphocytes % 10.2 % (15.3-44.8); MCV 93.2 fL (80-100); MPV 7.4 fL (7.6-11.3); Platelets 374 thou/uL (152-406); RBC Red Blood Cell Count 3.36 M/uL (3.86-4.86)
[2023-07-25 08:02] LABS: Magnesium 2.1 mg/dL (1.6-2.4); Potassium 3.7 mEq/L (3.5-5.1)
[2023-07-25] MEDS: POTASSIUM CL SA 10 MEQ TAB PO ONE ×2 (09:25→21:44)
[2023-07-25] MEDS ORDERED: CEFEPIME 1 GM in NA CHLORIDE 0.9% 100 ML IV SCH (10:54)
--- NOTE | 2023-07-25 10:59 | P.PN ---
Subjective Date of Service: 07/25/23 Chief Complaint: Bilateral pneumonia No change in patient's condition still short of breath significant desaturation on exertion on high levels of oxygen she is on Vapotherm Review of Systems General: Weakness Respiratory: Shortness of Breath Physical Examination - Vital Signs Temperature: 97.5 F Blood Pressure: 114/57 Pulse: 88 Respirations: 20 Pulse Ox (%): 91 - Physical Exam General: Alert, Oriented x3 Respiratory: Clear to auscultation bilaterally, Crackles/rales Cardiovascular: No edema, Regular rate/rhythm Gastrointestinal: Normal bowel sounds, Soft and benign Assessment And Plan - Current Problems (Diagnosis) (1) Bilateral pneumonia Current Visit: Yes Status: Acute Plan: Patient is still has bilateral interstitial changes looks well however complains of weakness shortness of breath x-ray no changes i.e. ILD white count is mildly elevated patient is a 95% FiO2 tolerating Vapotherm continue with doxycycline and levofloxacin Qualifiers: Pneumonia type: due to unspecified organism
[2023-07-25] MEDS: ENSURE ENLIVE 237 ML CAN PO SCH (21:00)
--- NOTE | 2023-07-26 00:34 | PN ---
Date of Progress Note: 07/25/2023 Subjective: The patient was seen this morning for followup. No new complaints or problems reported by the patient. She was lying in bed, on high-flow nasal cannula oxygen, not in any respiratory dist ress. Objective: Vital Signs: Reviewed. HEENT: Unremarkable. Lungs: Clear to auscultation except rales noted in bilateral mid and lower lung abreu, unchanged fr om yesterday. Not using accessory muscles of respiration. Heart: Sounds normal. Abdomen: Soft. Bowel sounds normal. No guarding, rigidity, tenderness, distention. Extremities: No leg edema. Laboratory Data: White count 15.4, hemoglobin 10.6, platelets 374. Sodium 135, potassium 3.7, chlor toño 102, bicarb 28, BUN 16, creatinine 0.59, glucose 102. Magnesium 2.1. Impression: 1.Pneumonia. 2.Acute respiratory failure with hypoxia. 3.Anemia, unspecified. Plan: We will go ahead and continue current medication. Continue current antibiotic. The patient i s on doxycycline and Levaquin, and also gets IV Lasix and IV steroid. We will continue oxygen supple mentation and continue to follow with Dr. Hernandez. Details were discussed with him. She is on Eliq uis for paroxysmal atrial fibrillation. I will continue that. I will see her tomorrow for followup. DENIS/MODL Voice ID: [id number] Report ID: [id number]
[2023-07-26 03:27] LABS: Potassium 4.3 mEq/L (3.5-5.1)
[2023-07-26] MEDS: SPIRONOLACTONE 25 MG TABLET PO SCH (09:00)
--- NOTE | 2023-07-26 10:54 | P.PN ---
Subjective Date of Service: 07/26/23 Chief Complaint: Bilateral pneumonia No change patient's condition is stable still short of breath on 95% Vapotherm Review of Systems General: Weakness Respiratory: Shortness of Breath Physical Examination - Vital Signs Temperature: 97.6 F Blood Pressure: 120/70 Pulse: 97 Respirations: 18 Pulse Ox (%): 90 - Physical Exam General: Alert, In no apparent distress, Oriented x3 Respiratory: Crackles/rales Cardiovascular: No edema, Regular rate/rhythm, Normal S1 S2 - Studies Microbiology Data (last 24 hrs): 07/20/23 22:50 Blood - Blood Aerobic Blood Culture - Final No growth in 5 days. 07/20/23 22:50 Blood - Blood Anaerobic Blood Culture - Final No growth in 5 days. 07/20/23 22:35 Blood - Blood Aerobic Blood Culture - Final No growth in 5 days. 07/20/23 22:35 Blood - Blood Anaerobic Blood Culture - Final No growth in 5 days. Assessment And Plan - Current Problems (Diagnosis) (1) Bilateral pneumonia Current Visit: Yes Status: Acute Plan: Patient and clinically has ARDS secondary to presumed viral pneumonia and Jover to p.o. Decadron low-dose continue with antibiotic will check white count tomorrow chemistries reviewed does not appear to be progression on the chest x- ray add low-dose spironolactone maintaining negative fluid balance vital signs are stable Qualifiers: Pneumonia type: due to unspecified organism
--- NOTE | 2023-07-26 11:15 | PN ---
Date of Progress Note: 07/26/2023 Subjective: The patient was seen this morning for followup. No new complaints or problems reported by patient. She remains on high-flow nasal cannula oxygen and has not required any BiPAP use since I saw her yesterday. Has a good appetite. She is able to get up and go to the bathroom. She does dr op her oxygen saturation at that time, but recovers rapidly. Objective: Vital Signs: Reviewed. HEENT: Unremarkable. Lungs: Bilateral good equal air entry except diminished air entry in the lower lung region. Some br onchial breath sounds in the right lung base. There is some minimal rales in left lung base noted. Heart: Sounds normal. Abdomen: Soft. Bowel sounds normal. No guarding, rigidity, tenderness, distention. Extremities: No leg edema. Laboratory Data: Sodium 136, potassium 4.3, chloride 103, bicarb 26, BUN 25, creatinine 0.71, glucos e 147. Impression: 1.Pneumonia. 2.Acute respiratory failure with hypoxia. 3.Anemia, unspecified. Plan: We will go ahead and continue to follow with Dr. Hernandez from Pulmonary Service. We will con suzy Gallardo that she is on for paroxysmal atrial fibrillation. We will continue current antibiotic s which is doxycycline and Levaquin and continue current oxygen replacement therapy. We will repeat chest x-ray tomorrow, and I will see her tomorrow for followup. DENIS/MODL Voice ID: [id number] Report ID: [id number]
[2023-07-27 06:39] LABS: Hematocrit 32.9 % (36.0-45.0); MCV 92.9 fL (80-100); MPV 7.3 fL (7.6-11.3); Platelets 449 thou/uL (152-406); RBC Red Blood Cell Count 3.54 M/uL (3.86-4.86)
[2023-07-27 06:54] LABS: Potassium 4.1 mEq/L (3.5-5.1)
--- NOTE | 2023-07-27 08:33 | RAD REPORT ---
EXAM DESCRIPTION: [facility] Single View07/27/2023 6:09 am CLINICAL HISTORY: Chest pain COMPARISON: July 25, 2023 FINDINGS: Mild worsening in the diffuse right and prominently left upper lobe pulmonary opacities Heart is normal size IMPRESSION: Mild worsening in the bilateral pulmonary opacities probably pneumonia
[2023-07-27 08:39] LABS: Blood Morphology Comment NOT SEEN (NOT SEEN); Platelet Estimate ADEQ
[2023-07-27] MEDS: dexAMETHasone 4 MG TAB PO SCH (09:00)
--- NOTE | 2023-07-27 10:34 | RAD REPORT ---
EXAM DESCRIPTION: RAD - Abdomen 1 View (KUB) - 07/27/2023 10:22 am CLINICAL HISTORY: Device placement Dobhoff tube placement FINDINGS: The tip of a Dobhoff tube lies within the junction of the gastric body and fundus
[2023-07-27] MEDS ORDERED: NA CHLORIDE 0.9% 100 ML ONE (10:59)
[2023-07-27] MEDS ORDERED: Meropenem 1000 MG/VIAL IV ONE ×2 (10:59→19:45)
[2023-07-27] MEDS ORDERED: dexAMETHasone 4 MG/ML VIAL ONE (10:59)
[2023-07-27] MEDS: Meropenem 1,000 MG in NA CHLORIDE 0.9% 100 ML IV SCH (11:07)
[2023-07-27] MEDS: VANCOMYCIN 1.5 GM in NA CHLORIDE 0.9% 500 ML IVPB ONE (11:08)
[2023-07-27] MEDS: dexAMETHasone 4 MG/ML VIAL IV SCH (11:11)
[2023-07-27] MEDS ORDERED: ACETAMINOPHEN 325 MG TABLET ONE (11:18)
--- NOTE | 2023-07-27 13:16 | P.PN ---
Subjective Date of Service: 07/27/23 Chief Complaint: Bilateral pneumonia respiratory failure transferred to the ICU Patient was patient was transferred to the ICU due to significant desaturation and high concentrations of oxygen he is currently alert responsive on BiPAP hemodynamically stable Review of Systems General: Weakness Respiratory: Shortness of Breath Physical Examination - Vital Signs Temperature: 97.2 F Blood Pressure: 99/65 Pulse: 96 Respirations: 32 Pulse Ox (%): 100 - Physical Exam General: Alert, Oriented x3 Respiratory: Crackles/rales Cardiovascular: No edema, Regular rate/rhythm, Normal S1 S2 Gastrointestinal: Normal bowel sounds, Soft and benign Assessment And Plan - Current Problems (Diagnosis) (1) Bilateral pneumonia Current Visit: Yes Status: Acute Plan: Patient has bilateral presumed atypical pneumonia white count is increased to 23,000 chest x-ray no significant change currently on BiPAP EPAP's level increased pressures are low will hold off on diuretics for now continue with doxycycline vancomycin and meropenem for now Qualifiers: Pneumonia type: due to unspecified organism Lung location: unspecified part of lung Qualified Code(s): J18.9 - Pneumonia, unspecified organism
--- NOTE | 2023-07-27 13:27 | PN ---
Date of Progress Note: 07/27/2023 Subjective: Patient was seen this morning for followup. No new complaints or problems reported by noreen bradshaw, when I saw her, except earlier this morning around 4:00 o'clock, nurse contacted me and infor med me that the patient was having hypoxia in spite of 100% oxygen and at that time, BiPAP was ordere d and Dr. Hernandez was contacted after I was contacted by the nurse and he has moved the patient to [facility]. I did talk to Dr. Hernandez this morning and he has changed antibiotics today. When I saw her, s he was in ICU. Her was with her at bedside. She was on BiPAP. Denies any specific complain ts. No chest pain. No abdominal pain, nausea, or vomiting. Objective: Vital Signs: Reviewed. Temperature 97.5, pulse 69, respiratory rate 34, blood pressure 113/64. Oxygen saturation 100% on BiPAP. HEENT: Unremarkable. Lungs: Bilateral equal air entry except diminished air entry in the lower lung region, but some mini mal crackles. Heart: Sounds normal. Abdomen: Soft. Bowel sounds normal. No guarding, rigidity, tenderness, distention. Extremities: No leg edema. Laboratory Data: White count 23.7, hemoglobin 11.1, platelets 440. Sodium 137, potassium 4.1, chlor toño 102, bicarb 29, BUN 27, creatinine 0.71, glucose 87. Impression: 1.Pneumonia. 2.Acute respiratory failure with hypoxia. 3.Anemia. 4.Paroxysmal atrial fibrillation. 5.Chronic anticoagulation therapy. Plan: Patient's chest x-ray today shows slight worsening compared to prior chest x-ray. So far, she was on doxycycline and Levaquin and today Dr. Hernandez has discontinued Levaquin and started her on meropenem along with doxycycline and I have added vancomycin for additional MRSA coverage. We will g o ahead and continue Eliquis for her paroxysmal atrial fibrillation. Patient will remain in ICU on B iPAP. Dr. Hernandez has ordered Dobhoff tube and we will use that for nutritional support and details and plan of treatment discussed with the patient and the patient's . The patient remains on IV dexamethasone that could definitely cause or contribute to this elevated white count and all these details were discussed with the patient and family as well. We will repeat blood work tomorrow. Re peat chest x-ray tomorrow. DENIS/MODL Voice ID: [id number] Report ID: [id number]
[2023-07-27] MEDS ORDERED: DEXMEDETOMIDINE HCL 200 MCG in NA CHLORIDE 0.9% 98 ML IV SCH (15:00)
[2023-07-27] MEDS ORDERED: NA CHLORIDE 0.9% 200 ML ONE (19:45)
[2023-07-28 05:02] LABS: Hematocrit 32.7 % (36.0-45.0); MCV 92.8 fL (80-100); MPV 7.7 fL (7.6-11.3); Platelets 445 thou/uL (152-406); RBC Red Blood Cell Count 3.52 M/uL (3.86-4.86)
[2023-07-28 05:24] LABS: Potassium 3.9 mEq/L (3.5-5.1)
[2023-07-28] MEDS ORDERED: KCL 20 MEQ/100 mL IVPB 100 ML IV ONE (06:17)
[2023-07-28] MEDS: KCL 20 MEQ/100 mL IVPB 20 MEQ/100 ML BAG IV SCH (06:19)
[2023-07-28] MEDS ORDERED: APIXABAN 5 MG TABLET ONE (07:55)
[2023-07-28] MEDS ORDERED: DOXYCYCLINE HYCLATE 100MG INJ ONE (07:55)
[2023-07-28] MEDS ORDERED: Meropenem 1000 MG/VIAL IV ONE ×2 (07:55→20:51)
[2023-07-28] MEDS ORDERED: dexAMETHasone 4 MG/ML VIAL ONE (07:55)
[2023-07-28] MEDS ORDERED: NA CHLORIDE 0.9% 100 ML ONE (07:56)
[2023-07-28] MEDS ORDERED: FAMOTIDINE 20 MG/2 ML VIAL IV ONE (07:56)
[2023-07-28] MEDS: JEVITY 1.5 CAL LIQUID 1,000 ML BOT FT SCH (08:20)
--- NOTE | 2023-07-28 09:04 | RAD REPORT ---
[facility] 8:45 [facility] CLINICAL HISTORY: ANITA PNE COMPARISON: Abdomen 1 View ([facility]) dated 07/27/2023; Chest Single View dated 07/27/2023; Chest Single Vi ew dated 07/25/2023; Chest Single View dated 07/24/2023 TECHNIQUE: Portable AP view of the chest. FINDINGS: Persistent patchy bilateral airspace opacities. Overall, these are stable. No pneumothora x or effusion. The cardiomediastinal contours are unremarkable. IMPRESSION: Stable bilateral patchy airspace opacities, concerning for pneumonia.
[2023-07-28] MEDS ORDERED: VANCOMYCIN 1 GM in NA CHLORIDE 0.9% 250 ML IVPB SCH (11:00)
[2023-07-28] MEDS: VANCOMYCIN 1.5 GM in NA CHLORIDE 0.9% 500 ML IV SCH (11:11)
--- NOTE | 2023-07-28 12:50 | P.PN ---
Subjective Date of Service: 07/28/23 Chief Complaint: Bilateral pneumonia respiratory failure transferred to the ICU Patient seems to be doing better oxygen requirements declining tolerating tube feeds Review of Systems General: Weakness Respiratory: Shortness of Breath Physical Examination - Vital Signs Temperature: 97.0 F Blood Pressure: 101/66 Pulse: 96 Respirations: 28 Pulse Ox (%): 94 - Physical Exam General: Alert, Oriented x3 Respiratory: Clear to auscultation bilaterally Cardiovascular: No edema, Regular rate/rhythm Assessment And Plan - Current Problems (Diagnosis) (1) Bilateral pneumonia Current Visit: Yes Status: Acute Plan: Patient transferred to the ICU with respiratory failure chest x-ray still shows bilateral interstitial changes continue titrate oxygen to a sat of 90% patient is on vancomycin and meropenem white count is declining DC p.o. doxycycline continue with Vapotherm alternating with BiPAP agree with hold with holding diuretics for now Qualifiers: Pneumonia type: due to unspecified organism Lung location: unspecified part of lung Qualified Code(s): J18.9 - Pneumonia, unspecified organism
--- NOTE | 2023-07-28 14:59 | PN ---
Date of Progress Note: 07/28/2023 Subjective: The patient was seen this morning for followup. No new complaints or problems reported by patient. Lying in bed, not in distress, in ICU bed, on high-flow nasal cannula oxygen. She looks a little better today than yesterday. Not using any accessory muscles of respiration, and her husba nd was with her at bedside. She has Dobhoff tube and she is tolerating feeding very well. She is ab le to take oral medications also. Objective: Vital Signs: Reviewed. HEENT: Unremarkable. Lungs: Bilateral good equal air entry except diminished air entry in the lower lung field. No wheez ing. No crackles. Heart: Sounds normal. Abdomen: Soft. Bowel sounds normal. No guarding, rigidity, tenderness, distention. Extremities: No leg edema. Laboratory Data: White count 20, hemoglobin 11, platelets 445. Sodium 135, potassium 3.9, chloride 101, bicarb 29, BUN 20, creatinine 0.63, glucose 110. Impression: 1.Pneumonia. 2.Acute respiratory failure with hypoxia. 3.Anemia. 4.Paroxysmal atrial fibrillation. Plan: We will go ahead and continue current antibiotic, which is doxycycline, meropenem, and vancomy daniela. The patient is on IV Decadron 4 mg daily and we will continue that. We will continue oxygen re placement therapy. Continue to follow with Dr. Hernandez. She is on Eliquis for paroxysmal atrial fi brillation. She is tolerating diet very well. She is asking to have some coffee and water by mouth, which should be okay for her to have it and I did ask nursing staff to go ahead and let her have tho se liquids per request. I have taught her certain leg exercises and she was encouraged to do those l eg exercises off and on throughout the day. We will get a chest x-ray done today and we will repeat blood work as well as chest x-ray tomorrow. I will see her tomorrow fo r followup. DENIS/MODL Voice ID: [id number] Report ID: [id number]
[2023-07-28] MEDS ORDERED: METOPROLOL TAR 25 MG TAB ONE (15:09)
[2023-07-28] MEDS ORDERED: ACETAMINOPHEN 325 MG TABLET ONE (15:14)
[2023-07-28] MEDS ORDERED: NA CHLORIDE 0.9% 200 ML ONE (20:52)
[2023-07-28] MEDS ORDERED: ACETAMINOPHEN 500 MG TAB ONE (22:46)
[2023-07-29 07:00] LABS: Absolute Lymphocytes (CBC) 1.6 K/uL (0.7-4.9); Hematocrit 30.4 % (36.0-45.0); Lymphocytes % 7.3 % (15.3-44.8); MCV 91.9 fL (80-100); MPV 7.4 fL (7.6-11.3); Platelets 491 thou/uL (152-406); RBC Red Blood Cell Count 3.31 M/uL (3.86-4.86)
[2023-07-29 07:17] LABS: Albumin 2.1 g/dL (3.4-5.0); Bilirubin Total 0.8 mg/dL (0.2-1.0); Magnesium 1.9 mg/dL (1.6-2.4)
[2023-07-29] MEDS ORDERED: dexAMETHasone 4 MG/ML VIAL ONE (08:07)
[2023-07-29] MEDS ORDERED: NA CHLORIDE 0.9% 0 ML ONE (08:08)
[2023-07-29] MEDS ORDERED: Meropenem 1000 MG/VIAL IV ONE ×2 (08:08→20:31)
--- NOTE | 2023-07-29 08:23 | RAD REPORT ---
EXAM DESCRIPTION: RAD - Chest Single View - 07/29/2023 5:11 am CLINICAL HISTORY: pneumonia Chest pain. COMPARISON: <Comparisons> FINDINGS: Portable technique limits examination quality. Extensive bilateral pulmonary opacities show no appreciable change since 07/28/2023 study. The heart is normal in size. No displaced fractures.Enteric tube tip is in the stomach. IMPRESSION: Extensive bilateral pulmonary opacities are stable since yesterday's study.
--- NOTE | 2023-07-29 09:08 | P.PN ---
Subjective Date of Service: 07/29/23 Chief Complaint: Bilateral pneumonia respiratory failure transferred to the ICU Patient's condition remained stable still experiencing significant dyspnea and desaturation on exertion x-ray still no change diffuse interstitial lung disease Review of Systems General: Weakness Respiratory: Shortness of Breath Physical Examination - Vital Signs Temperature: 97.4 F Blood Pressure: 109/95 Pulse: 103 Respirations: 32 Pulse Ox (%): 96 - Physical Exam General: Alert, Oriented x3 Respiratory: Clear to auscultation bilaterally, Crackles/rales Cardiovascular: No edema, Regular rate/rhythm, Normal S1 S2 Assessment And Plan - Current Problems (Diagnosis) (1) Bilateral pneumonia Current Visit: Yes Status: Acute Plan: Patient admitted with bilateral changes diffuse interstitial pneumonia cultures are negative so far white count is still mildly elevated condition stabilized can titrate O2 down to sat of 90% otherwise vital signs are stable continue with present treatment Qualifiers: Pneumonia type: due to unspecified organism Lung location: unspecified part of lung Qualified Code(s): J18.9 - Pneumonia, unspecified organism
[2023-07-29 09:48] LABS: Blood Morphology Comment NOT SEEN (NOT SEEN); Platelet Estimate ADEQ; White Blood Cell Scan OK (OK)
[2023-07-29] MEDS: METOPROLOL TAR 25 MG TAB PO SCH (17:18)
--- NOTE | 2023-07-29 20:18 | PN ---
Date of Progress Note: 07/29/2023 Subjective: Patient was seen this morning for followup. Her was with her at bedside when I saw her. She was in ICU, lying in bed, not in any distress. Feels better and looks better compared to 2-3 days ago. She remains on high-flow nasal cannula oxygen. This morning, she was at 70% oxygen . She is maintaining adequate oxygenation more than 90%. Objective: Vital Signs: Reviewed. HEENT: Unremarkable. Lungs: Clear to auscultation. Improved air entry on the right lung field compared to yesterday. No crackles. No wheezing. Not using accessory muscles of respiration. Heart: Sounds normal. Abdomen: Soft. Bowel sounds normal. No guarding, rigidity, tenderness, distention. Extremities: No leg edema. Laboratory Data: Reviewed. Impression: 1.Pneumonia. 2.Acute respiratory failure with hypoxia. 3.Anemia, unspecified. Plan: We will go ahead and continue current medications. Continue current antibiotics and oxygen re placement therapy. Continue Eliquis for paroxysmal atrial fibrillation. During the course of day to day, a decision was made to remove her Dobhoff tube as she is tolerating diet very well and eating 50 % to 100% of her meal without any problem. We will continue to keep her in ICU. I will see her tomorrow for followup and we will repeat blood work and chest x-ray tomorrow. DENIS/MODL Voice ID: [id number] Report ID: [id number]
[2023-07-29] MEDS ORDERED: NA CHLORIDE 0.9% 100 ML ONE ×2 (20:31→20:36)
[2023-07-30 05:44] LABS: Absolute Lymphocytes (CBC) 1.8 K/uL (0.7-4.9); Hematocrit 29.9 % (36.0-45.0); Lymphocytes % 6.9 % (15.3-44.8); MCV 92.4 fL (80-100); MPV 7.3 fL (7.6-11.3); Platelets 465 thou/uL (152-406); RBC Red Blood Cell Count 3.24 M/uL (3.86-4.86)
[2023-07-30 06:02] LABS: Albumin 1.9 g/dL (3.4-5.0); Magnesium 2.1 mg/dL (1.6-2.4); Potassium 4.3 mEq/L (3.5-5.1); Protein, Total 6.9 g/dL (6.4-8.2)
[2023-07-30] MEDS: VANCOMYCIN 1.5 GM in NA CHLORIDE 0.9% 500 ML IV SCH (06:40)
[2023-07-30] MEDS ORDERED: dexAMETHasone 4 MG/ML VIAL ONE (08:06)
[2023-07-30] MEDS ORDERED: NA CHLORIDE 0.9% 100 ML ONE ×2 (08:07→21:36)
[2023-07-30] MEDS ORDERED: Meropenem 1000 MG/VIAL IV ONE ×2 (08:07→21:36)
[2023-07-30 08:27] LABS: Blood Morphology Comment NOT SEEN (NOT SEEN); Platelet Estimate ADEQ
[2023-07-30] MEDS: ENSURE HIGH PROTEIN 237 ML CAN PO SCH (08:30)
--- NOTE | 2023-07-30 12:35 | P.PN ---
Subjective Date of Service: 07/30/23 Chief Complaint: Bilateral pneumonia respiratory failure Patient still experiencing desaturation worse in the early hours of the morning otherwise stable no change in condition Review of Systems General: Weakness Respiratory: Shortness of Breath Physical Examination - Vital Signs Temperature: 98.7 F Blood Pressure: 122/76 Pulse: 108 Respirations: 24 Pulse Ox (%): 88 - Physical Exam General: Alert, Oriented x3, Mild distress Respiratory: Crackles/rales Cardiovascular: No edema, Regular rate/rhythm, Normal S1 S2 Assessment And Plan - Current Problems (Diagnosis) (1) Bilateral pneumonia Current Visit: Yes Status: Acute Plan: Patient has now ARDS white count has increased slightly discontinued dexamethasone otherwise vital signs are stable titrate sat to 90% patient is eating and drinking alert cooperative distress Qualifiers: Pneumonia type: due to unspecified organism Lung location: unspecified part of lung Qualified Code(s): J18.9 - Pneumonia, unspecified organism
--- NOTE | 2023-07-31 05:51 | PN ---
Date of Progress Note: 07/30/2023 Subjective: The patient was seen this morning for followup. She was lying in bed. Her was with her at bedside on high-flow nasal cannula oxygen. The patient maintains adequate oxygenation wh ile at rest, but with any activity her oxygen saturation drops. Appetite is good she reports. No ot her complaints reported overnight. Objective: Vital Signs: Reviewed. HEENT: Unremarkable. Lungs: Bilateral equal air entry. Some minimal rales noted in lung bases, unchanged from before, no t using accessory muscles of respiration. Heart: Sounds normal. Abdomen: Soft, bowel sounds normal. No guarding, rigidity, tenderness, or distention. Extremities: No leg edema. Laboratory Data: White count 26.8, hemoglobin 10.2, platelets 465. Sodium 133, potassium 4.3, chlor toño 101, bicarb 30, BUN 18, creatinine 0.53, glucose 96. Liver function tests unremarkable. Serum a lbumin 1.9. Chest x-ray showing bilateral pneumonia. Impression: 1.Pneumonia. 2.Acute respiratory failure with hypoxia. 3.Anemia. 4.Severe malnutrition. 5.Generalized weakness. Plan: We will go ahead and have Physical Therapy start working with the patient and the patient was encouraged to continue to do her leg exercise. For severe malnutrition, we will go ahead and add nut ritional supplement, Ensure. For pneumonia and acute respiratory failure, we will continue her curre nt antibiotics. The patient is on vancomycin and meropenem. We will continue that. She is also get ting dexamethasone 4 mg IV daily. We will continue to follow up with Dr. Hernandez. Continue Eliquis for her paroxysmal atrial fibrillation and I will see her tomorrow for kwaku jama. DENIS/MODL Voice ID: [id number] Report ID: [id number]
[2023-07-31 05:55] LABS: Absolute Lymphocytes (CBC) 1.5 K/uL (0.7-4.9); Lymphocytes % 6.1 % (15.3-44.8); MCV 91.9 fL (80-100); MPV 7.6 fL (7.6-11.3); Platelets 447 thou/uL (152-406); RBC Red Blood Cell Count 3.15 M/uL (3.86-4.86)
[2023-07-31 06:00] LABS: Magnesium 2.2 mg/dL (1.6-2.4); Potassium 4.1 mEq/L (3.5-5.1)
--- NOTE | 2023-07-31 08:02 | RAD REPORT ---
[facility] DES[facility] 4:22 am CLINICAL HISTORY: pneumonia COMPARISON: Chest Single View dated 07/29/2023; Chest Single View dated 07/28/2023; Abdomen 1 View ([facility]) dated 07/27/2023; Chest Single View dated 07/27/2023 TECHNIQUE: Portable AP view of the chest. FINDINGS: Progressive patchy left mid to lower lung airspace opacities. Other scattered patchy bilat eral opacities otherwise stable. No pneumothorax or effusion. The cardiomediastinal contours are unr emarkable. IMPRESSION: Progressive airspace opacities in the left mid to lower lung, concerning for pneumonia.
[2023-07-31] MEDS ORDERED: APIXABAN 5 MG TABLET ONE (09:22)
[2023-07-31] MEDS ORDERED: Meropenem 1000 MG/VIAL IV ONE ×2 (09:22→17:23)
[2023-07-31] MEDS ORDERED: dexAMETHasone 4 MG/ML VIAL ONE ×2 (09:22→21:16)
[2023-07-31] MEDS ORDERED: FAMOTIDINE 20 MG/2 ML VIAL IV ONE (09:22)
[2023-07-31] MEDS ORDERED: Levofloxacin 750mg IV 750 MG/150 ML BAG IV ONE (09:23)
[2023-07-31] MEDS ORDERED: NA CHLORIDE 0.9% 100 ML ONE ×2 (09:23→17:23)
[2023-07-31] MEDS: dexAMETHasone 4 MG/ML VIAL IV SCH (09:43)
[2023-07-31] MEDS: Meropenem 1,000 MG in NA CHLORIDE 0.9% 100 ML IV SCH (09:44)
[2023-07-31] MEDS: Levofloxacin 750mg IV 750 MG/150 ML BAG IV SCH (09:44)
[2023-07-31] MEDS ORDERED: ACETAMINOPHEN 325 MG TABLET ONE (09:53)
--- NOTE | 2023-07-31 12:34 | P.PN ---
Subjective Date of Service: 07/31/23 Chief Complaint: Bilateral pneumonia respiratory failure Change in patient's condition chest x-ray looks worse still requiring 80% FiO2 Review of Systems General: Weakness Respiratory: Shortness of Breath Physical Examination - Vital Signs Temperature: 97.6 F Blood Pressure: 98/60 Pulse: 83 Respirations: 40 Pulse Ox (%): 93 - Physical Exam General: Alert, Oriented x3, Mild distress Respiratory: Crackles/rales (Bilateral) Cardiovascular: No edema, Regular rate/rhythm Assessment And Plan - Current Problems (Diagnosis) (1) Bilateral pneumonia Current Visit: Yes Status: Acute Plan: Patient has ARDS no improvement in x-ray in fact looks a little bit worse on the left side will resume levofloxacin and Decadron chemistries reviewed was slightly lower the patient to try BiPAP BiPAP alternating with Vapotherm prognosis poor Qualifiers: Pneumonia type: due to unspecified organism Lung location: unspecified part of lung Qualified Code(s): J18.9 - Pneumonia, unspecified organism
[2023-07-31] MEDS ORDERED: LACTULOSE 20 GM/30 ML UCUP ONE (15:26)
[2023-07-31] MEDS: LACTULOSE 20 GM/30 ML UCUP PO PRN (15:28)
[2023-07-31] MEDS: VANCOMYCIN 1.75 GM in NA CHLORIDE 0.9% 500 ML IV SCH (18:09)
[2023-07-31] MEDS: BISACODYL 10 MG RECTAL SUPP PR ONE (21:33)
[2023-07-31] MEDS ORDERED: BISACODYL 10 MG RECTAL SUPP ONE (21:33)
[2023-08-01] MEDS ORDERED: Meropenem 1000 MG/VIAL IV ONE ×4 (01:23→23:11)
[2023-08-01] MEDS ORDERED: NA CHLORIDE 0.9% 100 ML ONE ×4 (01:23→23:11)
--- NOTE | 2023-08-01 07:39 | RAD REPORT ---
EXAM DESCRIPTION: [facility] Single View08/01/2023 7:28 am CLINICAL HISTORY: Respiratory failure COMPARISON: July [id number] FINDINGS: Minimal improvement in diffuse bilateral pulmonary opacities. The heart is normal size IMPRESSION: Minimal improvement in diffuse bilateral pulmonary opacities which may represent pulmona ry edema, ARDS or pneumonia
[2023-08-01 07:41] LABS: Absolute Lymphocytes (CBC) 0.9 K/uL (0.7-4.9); Hematocrit 28.5 % (36.0-45.0); Lymphocytes % 3.5 % (15.3-44.8); MCV 92.5 fL (80-100); MPV 7.3 fL (7.6-11.3); Platelets 464 thou/uL (152-406); RBC Red Blood Cell Count 3.08 M/uL (3.86-4.86)
[2023-08-01 07:56] LABS: Albumin 1.7 g/dL (3.4-5.0); Bilirubin Total 1.1 mg/dL (0.2-1.0); Magnesium 2.2 mg/dL (1.6-2.4); Potassium 3.8 mEq/L (3.5-5.1); Protein, Total 6.9 g/dL (6.4-8.2)
[2023-08-01] MEDS ORDERED: dexAMETHasone 4 MG/ML VIAL ONE ×2 (08:47→19:49)
[2023-08-01] MEDS ORDERED: MAGNESIUM HYDROXIDE 8% 30 ML ONE (08:47)
--- NOTE | 2023-08-01 09:44 | PN ---
Date of Progress Note: 07/31/2023 Subjective: The patient was seen this morning for followup. No new complaints or problems reported by the patient. She appeared more tired today than yesterday and day before yesterday. She is on hi gh-flow nasal cannula oxygen. Objective: Vital Signs: Reviewed. HEENT: Unremarkable. Lungs: Not using any accessory muscles of respiration. Bilateral diminished air entry with reduced air entry, especially in the left lung field compared to the right side. Some crackles noted in lowe r lung abreu. Heart: Sounds normal. Abdomen: Soft. Bowel sounds normal. No guarding, rigidity, tenderness, distention. Extremities: No leg edema. Laboratory Data: Chest x-ray shows progression of lung infiltrate. White count today 24.10, hemoglo bin 10, platelets 447. Sodium 134, potassium 4.1, chloride 101, bicarb 30, BUN 20, creatinine 0.58, glucose 85. Magnesium 2.2. Impression: 1.Pneumonia. 2.Acute respiratory failure with hypoxia. 3.Anemia. 4.Generalized weakness. 5.Debility. Plan: We will go ahead and continue current medications. Continue current IV antibiotics. Details were discussed with Dr. Hernandez. The patient is on meropenem and vancomycin, and is going to add Le vaquin. The patient was on IV steroid so far, it was discontinued yesterday, but today Dr. Hernandez has restarted it after looking at her chest x-ray today. I will se e her tomorrow for followup. DENIS/MODL Voice ID: [id number] Report ID: [id number]
[2023-08-01] MEDS: MAGNESIUM HYDROXIDE 8% 30 ML PO ONE (09:52)
[2023-08-01] MEDS: Mupirocin NASAL 2 APPL/1 GM TUBE NAS SCH (09:53)
--- NOTE | 2023-08-01 10:33 | PN ---
Date of Progress Note: 08/01/2023 Subjective: The patient was seen this morning for followup. Her was with her at bedside. T he patient looks very tired just like the way she did yesterday, on high-flow nasal cannula oxygen an d supplemental oxygen with mask. She is maintaining oxygen saturation around 93% to 95% with this, b ut if she talks a lot, then her oxygen saturation drops down into 84% to 85% range. Her appetite is good. Yesterday, she had a very small bowel movement. Objective: Vital Signs: Reviewed. HEENT: Unremarkable. Lungs: Bilateral diminished air entry with more diminished air entry in the lower part of the left l vignesh. Her air entry is more diminished on the left side than the right side. Heart: Sounds normal. Abdomen: Soft. Bowel sounds normal. No guarding, rigidity, tenderness, distention. Extremities: No leg edema. Laboratory Data: White count 24.7, hemoglobin 9.6, platelets 464. Sodium 137, potassium 3.8, chlori de 105, bicarb 28, BUN 19, creatinine 0.48, glucose 132. Chest x-ray reviewed shows minimal improvem ent today compared to yesterday. Impression: 1.Pneumonia. 2.Acute respiratory failure with hypoxia. 3.Acute respiratory distress syndrome. 4.Anemia. 5.Generalized weakness. 6.Debility. Plan: We will go ahead and continue current medication. The patient is on meropenem, vancomycin, an d Levaquin. IV steroid. Continue oxygen supplementation. Yesterday, Dr. Hernandez wanted her to try BiPAP for as long as possible and she only tolerated for very short time, maybe hour to hour and a h ebonie. Today, I had a long discussion with her and her , and explained the importance of her tr nan to use BiPAP as long as she can. I would prefer her to see if she can keep it on at least for 1 6 to 18 hours out of 24 hours, and she will try that today. She was advised not to talk too much as it tends to drop her oxygen level. We will continue to follow with Dr. Hernandez. The patient and he r they both were made aware about the critical nature of her illness and if her condition get s worse from where we are right now, then she may end up on a ventilator and all those details were d iscussed with them today. DENIS/MODL Voice ID: [id number] Report ID: [id number]
--- NOTE | 2023-08-01 11:24 | RAD REPORT ---
EXAM DESCRIPTION: RAD - Chest Single View - 08/01/2023 11:12 am CLINICAL HISTORY: Device placement PICC line placement IMPRESSION: PICC line with its tip in the superior vena cava
[2023-08-01] MEDS: DEXMEDETOMIDINE HCL 200 MCG in NA CHLORIDE 0.9% 98 ML IV SCH (13:22)
--- NOTE | 2023-08-01 14:49 | P.PN ---
Subjective Date of Service: 08/01/23 Chief Complaint: Bilateral pneumonia respiratory failure To change in condition still requiring high conc of O2/ Eating and drinking Review of Systems General: Weakness Respiratory: Shortness of Breath Physical Examination - Vital Signs Temperature: 97.4 F Blood Pressure: 107/61 Pulse: 85 Respirations: 37 Pulse Ox (%): 96 - Physical Exam General: Alert, Oriented x3, Mild distress Respiratory: Clear to auscultation bilaterally Cardiovascular: No edema, Regular rate/rhythm, Normal S1 S2 Assessment And Plan - Current Problems (Diagnosis) (1) Bilateral pneumonia Current Visit: Yes Status: Acute Plan: ARDS/ CXRY ? improvement CW lasix and present AB ALbs reviewed .WBC stable/ CXRY ? improvement/ BIPAP alternating with Vapotherm No change in AB yet. Qualifiers: Pneumonia type: due to unspecified organism Lung location: unspecified part of lung Qualified Code(s): J18.9 - Pneumonia, unspecified organism
[2023-08-01] MEDS ORDERED: FUROSEMIDE 20 MG/ 2ML VIAL ONE (16:35)
[2023-08-01] MEDS ORDERED: NYSTATIN 100MU/GM CREAM 15GM TOP ONE (16:35)
[2023-08-01] MEDS: NYSTATIN 100MU/GM CREAM 15GM TOP SCH (16:38)
[2023-08-01] MEDS: FUROSEMIDE 20 MG/ 2ML VIAL IV ONE (16:39)
[2023-08-01] MEDS ORDERED: ACETAMINOPHEN 500 MG TAB ONE (19:48)
[2023-08-01] MEDS: ACETAMINOPHEN 500 MG TAB PO SCH (19:57)
[2023-08-01] MEDS: DOCUSATE NA/SENNA CONC 1 TAB PO SCH (19:58)
[2023-08-02 04:55] LABS: Absolute Lymphocytes (CBC) 1.1 K/uL (0.7-4.9); Hematocrit 26.9 % (36.0-45.0); Lymphocytes % 4.1 % (15.3-44.8); MCV 92.7 fL (80-100); MPV 7.5 fL (7.6-11.3); Platelets 403 thou/uL (152-406)
[2023-08-02 05:12] LABS: Albumin 1.6 g/dL (3.4-5.0); Bilirubin Total 0.7 mg/dL (0.2-1.0); Protein, Total 6.3 g/dL (6.4-8.2)
[2023-08-02] MEDS ORDERED: dexAMETHasone 4 MG/ML VIAL ONE (08:38)
[2023-08-02] MEDS ORDERED: NA CHLORIDE 0.9% 100 ML ONE ×3 (08:38→22:55)
[2023-08-02] MEDS ORDERED: Meropenem 1000 MG/VIAL IV ONE ×3 (08:38→22:55)
[2023-08-02] MEDS ORDERED: ACETAMINOPHEN 500 MG TAB ONE ×3 (08:57→19:49)
--- NOTE | 2023-08-02 09:21 | RAD REPORT ---
EXAM DESCRIPTION: RADChest Single View08/02/2023 9:07 am CLINICAL HISTORY: pneumonia COMPARISON: Chest Single View dated 08/01/2023; Chest Single View dated 08/01/2023; Chest Single View dated 07/31/2023; Chest Single View dated 07/29/2023 TECHNIQUE: Portable AP view of the chest. FINDINGS: Stable patchy airspace and interstitial opacities more pronounced on the left. Stable posi tioning of right arm PICC. No pneumothorax or effusion. The cardiomediastinal contours are unremarka ble. IMPRESSION: Stable bilateral opacities worse on the left, concerning for pneumonia.
--- NOTE | 2023-08-02 10:23 | P.PN ---
Subjective Date of Service: 08/02/23 Chief Complaint: Bilateral pneumonia respiratory failure No change in patient's condition she is not tolerating BiPAP slept well last night on Precedex Review of Systems General: Weakness Respiratory: Shortness of Breath Physical Examination - Vital Signs Temperature: 97.5 F Blood Pressure: 102/61 Pulse: 96 Respirations: 25 Pulse Ox (%): 92 - Physical Exam General: Alert, Oriented x3, Moderate distress Respiratory: Clear to auscultation bilaterally, Diminished Cardiovascular: No edema, Regular rate/rhythm, Normal S1 S2 Assessment And Plan - Current Problems (Diagnosis) (1) Bilateral pneumonia Current Visit: Yes Status: Acute Plan: Patient has respiratory failure ARDS of unknown etiology doubt bacterial pneumonia check procalcitonin level she has been on antibiotics for more than 10 days adjust antibiotic therapy according to procalcitonin level continue with IV Lasix reduce Decadron to 4 mg daily she will need PCP prophylaxis labs reviewed tolerating a diet Qualifiers: Pneumonia type: due to unspecified organism Lung location: unspecified part of lung Qualified Code(s): J18.9 - Pneumonia, unspecified organism
--- NOTE | 2023-08-02 11:57 | PN ---
Date of Progress Note: 08/02/2023 Subjective: The patient was seen this morning for followup. She was lying in bed, not in distress. I saw her couple of times this morning. When I saw her first, she was on her BiPAP and after about an hour or so, I went back to check on her because her son and had arrived at that time, so w anted to have a detailed discussion with them as well and at that time she was on high-flow nasal can nula oxygen, maintaining adequate oxygenation around 95%. She actually looks better today than last 2 to 3 days. Does not look quite as tired as how she did in last 2 to 3 days. As per my discussion with nursing staff in ICU, she did keep her BiPAP on for several hours since I had discussion with he r yesterday and was able to tolerate that. Her appetite is good and she did have a bowel movement. Objective: Vital Signs: Reviewed. Last temperature this morning 97.5, pulse 96, respiratory rate 2 5, blood pressure 102/61. HEENT: Unremarkable. Lungs: Bilateral diminished air entry, more diminished on the left side than the right side with elizabet e crackles noted in the left lower lung field. Heart: Sounds normal. Abdomen: Soft. Bowel sounds normal. No guarding, rigidity, tenderness, distention. Extremities: No leg edema. Laboratory Data: White count 27.7, hemoglobin 8.9, platelets 403. Chemistry unremarkable. Chest x- ray from today, no significant change from yesterday. Impression: 1.Pneumonia. 2.ARDS. 3.Acute respiratory failure with hypoxia. 4.Anemia. 5.Generalized weakness. 6.Paroxysmal atrial fibrillation. Plan: We will go ahead and continue current oxygen replacement therapy. I did talk to the patient a nd advised her that out of 24 hours, at least I would like for her to try to use her BiPAP for about 16 hours, so she can take some time off around her meal time and in between as needed, but she is goi ng to try to wear it as much as she can as suggested. During mealtimes, she will use her high-flow n vinnie cannula oxygen. We will continue her current antibiotic, which is her vancomycin, meropenem, an d Levaquin which was started just 2 to 3 days ago. So far, all her cultures have been negative. We will go ahead and have Physical Therapy continue to work with her, but there will be limited activity she can do right now because she gets significantly hypoxic with any activity, so there is a limitat ion of what physical therapy can do right now until her oxygenation improves. We will also go ahead and have her try to get out of bed to see if she can sit in the chair instead of staying in the bed a ll the time and I have strongly encouraged her to change her position from [id number] and right-to -left and use a small pillow underneath her 1 buttock to try to alleviate some pressure from her sacr ococcygeal and buttocks area as she already has beginning of stage II decubitus in sacrococcygeal and buttock region with redness of the skin. There is no skin breakdown. The patient was made aware of this concern and offloading is very critical and she was instructed not to stay on her back, where s he would apply direct pressure to this affected area and instead of staying directly on her back, she was advised to just put a small pillow either on right side or left side, but every 2 hours change t hat to take the pressure off her back. Getting out of bed to sit in the chair for a while will also help and I talked to ICU nurse to see if we have a donut pillow in the hospital. If not, alex l try to bring it from home that he thinks he might have it and we will try to use that to take the p ressure off. She has good appetite and she is using good nutritional supplement. Her serum albumin is very low at 1.6 to 1.7 range. All the details were discussed with the patient and the patient's h usband and son who were at bedside. DENIS/MODL Voice ID: [id number] Report ID: [id number]
[2023-08-02] MEDS: FUROSEMIDE 20 MG/ 2ML VIAL ONE (17:54)
[2023-08-02] MEDS: FUROSEMIDE 20 MG/ 2ML VIAL IV SCH (17:56)
[2023-08-03 01:33] LABS: Absolute Lymphocytes (CBC) 2.1 K/uL (0.7-4.9); Hematocrit 25.4 % (36.0-45.0); Lymphocytes % 9.1 % (15.3-44.8); MCV 92.2 fL (80-100); MPV 7.4 fL (7.6-11.3); Platelets 344 thou/uL (152-406); RBC Red Blood Cell Count 2.76 M/uL (3.86-4.86)
[2023-08-03 01:49] LABS: Albumin 1.5 g/dL (3.4-5.0); Bilirubin Total 0.5 mg/dL (0.2-1.0); Potassium 3.5 mEq/L (3.5-5.1); Protein, Total 5.5 g/dL (6.4-8.2)
[2023-08-03 02:34] LABS: Blood Morphology Comment NOT SEEN (NOT SEEN); Platelet Estimate ADEQ
[2023-08-03] MEDS: POTASSIUM CL SA 10 MEQ TAB PO ONE (05:55)
[2023-08-03] MEDS ORDERED: Meropenem 1000 MG/VIAL IV ONE ×3 (07:37→23:38)
[2023-08-03] MEDS ORDERED: dexAMETHasone 4 MG/ML VIAL ONE (07:37)
[2023-08-03] MEDS ORDERED: NA CHLORIDE 0.9% 100 ML ONE ×3 (07:37→23:38)
[2023-08-03] MEDS ORDERED: ACETAMINOPHEN 500 MG TAB ONE ×3 (07:37→20:21)
[2023-08-03] MEDS: dexAMETHasone 4 MG/ML VIAL IV SCH (07:58)
[2023-08-03] MEDS ORDERED: dexAMETHasone 4 MG/ML VIAL IV SCH (09:00)
--- NOTE | 2023-08-03 11:57 | P.PN ---
Subjective Date of Service: 08/03/23 Chief Complaint: Bilateral pneumonia respiratory failure Again no change in patient's condition however oxygen requirement is a little bit less on BiPAP still feels weak and short of breath Review of Systems General: Weakness Respiratory: Shortness of Breath Physical Examination - Vital Signs Temperature: 97.4 F Blood Pressure: 104/58 Pulse: 105 Respirations: 31 Pulse Ox (%): 91 - Physical Exam General: Alert, In no apparent distress, Moderate distress Respiratory: Clear to auscultation bilaterally, Diminished Cardiovascular: No edema, Normal pulses, Regular rate/rhythm Assessment And Plan - Current Problems (Diagnosis) (1) Bilateral pneumonia Current Visit: Yes Status: Acute Plan: Patient's condition is stable chest x-ray no significant change white count has declined procalcitonin level is negative patient's oxygen requirements seem to be decreasing on the BiPAP recommend deseeding all antibiotics for now she has been on antibiotics for over 10 days there is no evidence of any infection procalcitonin level was also negative continue with low-dose Decadron for now Qualifiers: Pneumonia type: due to unspecified organism Lung location: unspecified part of lung Qualified Code(s): J18.9 - Pneumonia, unspecified organism
--- NOTE | 2023-08-03 12:15 | PN ---
Date of Progress Note: 08/03/2023 Subjective: The patient was seen this morning for followup. No new complaints, problems reported by her. The patient's and 2 sons were present at bedside. As per my discussion with the [facility] staff, the patient did spend about 6 hours sitting in the chair yesterday during day time and she was sitting on a donut pillow while she was sitting in the chair. While in the bed, she did not like to use donut pillow, but she was putting a small pillow underneath her right and left side of buttoc ks alternatively to try to take the pressure off from her sacral coccygeal and central buttock region . She has good appetite. She is keeping her BiPAP on and she kept it on all night. Overall yesterd ay and today she looks better compared to previous 2-3 days. She also had a bowel movement yesterday . She has good appetite and is using nutritional supplement Ensure. She had one container of this E nsure yesterday and today I have encouraged her, on top of her meals, to have 2-3 containers of Ensur e on a daily basis to help improve nutritional support. Physical Examination: Vital Signs: Reviewed. HEENT: Unremarkable. Lungs: Bilateral equal air entry with some diminished air entry in the lung bases. No rales. Not u sing any accessory muscles of respiration. Heart: Sounds normal. Abdomen: Soft. Bowel sounds normal. No guarding, rigidity, tenderness, distention. Extremities: No leg edema. Labs: White count 23.10, hemoglobin 8.3, platelets 344. Sodium 137, potassium 3.5, chloride 105, bi carb 29, BUN 30, creatinine 0.53, glucose 94. Albumin 1.5. Impression: 1.Pneumonia. 2.ARDS. 3.Acute respiratory failure with hypoxia. 4.Generalized weakness. 5.Anemia. Plan: We will go ahead and continue to encourage her to eat 3 meals and use nutritional supplement p er order. She is currently on vancomycin, meropenem, and levofloxacin. Plan is to stop this antibio tic after giving 10 days of antibiotic therapy. Her procalcitonin which was done yesterday DICTATION ENDS HERE DENIS/MODL Voice ID: [id number] Report ID: [id number]
[2023-08-04 05:32] LABS: Absolute Lymphocytes (CBC) 2.5 K/uL (0.7-4.9); Hematocrit 28.5 % (36.0-45.0); Lymphocytes % 8.8 % (15.3-44.8); MCV 92.5 fL (80-100); MPV 6.9 fL (7.6-11.3); Platelets 389 thou/uL (152-406); RBC Red Blood Cell Count 3.08 M/uL (3.86-4.86)
[2023-08-04 05:56] LABS: Albumin 1.8 g/dL (3.4-5.0); Bilirubin Total 0.7 mg/dL (0.2-1.0); Magnesium 2.2 mg/dL (1.6-2.4); Phosphorus 2.2 mg/dL (2.5-4.9); Potassium 3.7 mEq/L (3.5-5.1); Protein, Total 6.4 g/dL (6.4-8.2)
--- NOTE | 2023-08-04 07:57 | RAD REPORT ---
EXAM DESCRIPTION: RAD - Chest Single View - 08/04/2023 4:52 am CLINICAL HISTORY: pneumonia Chest pain. COMPARISON: Chest Single View dated 08/02/2023; Chest Single View dated 08/01/2023; Chest Single View dated 08/01/2023; Chest Single View dated 07/31/2023 FINDINGS: Portable technique limits examination quality. Moderate bilateral pulmonary opacities are noted, unchanged since 08/02/2023 study. The heart is uppe r limit normal in size. Right-sided PICC line is unchanged in position. IMPRESSION: Stable chest since comparative examination.
[2023-08-04] MEDS ORDERED: Meropenem 1000 MG/VIAL IV ONE ×2 (08:34→15:47)
[2023-08-04] MEDS ORDERED: NA CHLORIDE 0.9% 100 ML ONE ×2 (08:34→15:48)
[2023-08-04] MEDS ORDERED: ACETAMINOPHEN 500 MG TAB ONE ×3 (08:34→19:44)
[2023-08-04] MEDS ORDERED: dexAMETHasone 4 MG/ML VIAL ONE (08:40)
[2023-08-04] MEDS: VANCOMYCIN 1.75 GM in NA CHLORIDE 0.9% 500 ML IV SCH (09:34)
[2023-08-04 10:10] LABS: Blood O2 Saturation 78.4 % (92-98.5)
[2023-08-04] MEDS: NA CHLORIDE 0.9% 250 ML IV ONE (13:38)
[2023-08-04] MEDS: POTASS/SODIUM PHOSPHATE 1 PKT POWD.PACK PO SCH ×2 (13:39→14:34)
--- NOTE | 2023-08-04 14:41 | RAD REPORT ---
EXAM DESCRIPTION: RADChest Single View08/04/2023 2:00 pm CLINICAL HISTORY: right Pneumothorax??? COMPARISON: Chest Single View dated 08/04/2023; Chest Single View dated 08/02/2023; Chest Single View dated 08/01/2023; Chest Single View dated 08/01/2023; Chest For Pe Angio dated 07/21/2023 TECHNIQUE: Portable AP view of the chest. FINDINGS: Improving patchy peripheral predominant airspace opacities. Persistent background intersti tial thickening. No new consolidation. Right arm PICC unchanged in position. No pneumothorax or effu luc. The cardiomediastinal contours are unchanged. IMPRESSION: Improving airspace opacities as above. Background diffuse interstitial changes which may reflect sequelae of COPD/ emphysema.
--- NOTE | 2023-08-04 16:45 | P.PN ---
Subjective Date of Service: 08/04/23 Chief Complaint: Bilateral pneumonia respiratory failure Patient continues to require high concentrations of oxygen remains hypoxic however chest x-ray looks better Review of Systems General: Weakness Respiratory: Shortness of Breath Physical Examination - Vital Signs Temperature: 96.9 F Blood Pressure: 109/64 Pulse: 107 Respirations: 26 Pulse Ox (%): 97 - Physical Exam General: Alert, Oriented x3 Respiratory: Clear to auscultation bilaterally, Diminished Cardiovascular: No edema, Normal pulses, Regular rate/rhythm Assessment And Plan - Current Problems (Diagnosis) (1) Bilateral pneumonia Current Visit: Yes Status: Acute Plan: Patient admitted with ARDS secondary to presumed pneumonia chest x-ray is improving she still still continues to remain very hypoxic will discontinue IV Lasix blood pressure is very low new with BiPAP alternating with Vapotherm she is now developing a decubitus ulcer agree with stopping all antibiotic we will plan to decrease the Decadron to 2 mg by tomorrow Qualifiers: Pneumonia type: due to unspecified organism Lung location: unspecified part of lung Qualified Code(s): J18.9 - Pneumonia, unspecified organism
--- NOTE | 2023-08-04 19:57 | PN ---
Date of Progress Note: 08/04/2023 Subjective: Patient was seen this morning for followup. No new complaints or problems reported by t he patient. She was lying in bed in ICU. Her was with her at bedside. Overnight, no new com plaints or problems reported by nursing staff. Objective: Vital Signs: Reviewed. HEENT: Unremarkable. Lungs: Bilateral diminished air entry with presence of rales noted in the left lower lung region. N ot using accessory muscles of respiration and she was on high-flow nasal cannula oxygen. Heart: Sounds normal. Abdomen: Soft. Bowel sounds normal. No guarding, rigidity, tenderness, distention. Extremities: No leg edema. Laboratory Data: Today, white count 28.1, hemoglobin 9.5, platelets 389. Sodium 137, potassium 3.7, chloride 104, bicarb 31, BUN 25, creatinine 0.53, glucose 86, albumin 1.8. Chest x-ray, significant bilateral pulmonary opacities, appears slightly better than before. Impression: 1.Pneumonia. 2.Acute respiratory distress syndrome. 3.Acute respiratory failure with hypoxia. 4.Generalized weakness. 5.Debility. 6.Stage II decubitus ulcer, sacrococcygeal region. 7.Anemia, unspecified. 8.Paroxysmal atrial fibrillation. 9.Chronic anticoagulation therapy. 10.Severe malnutrition. Plan: We will go ahead and continue current antibiotics. The patient is on Levaquin, meropenem and vancomycin and after today, we will discontinue meropenem and vancomycin. Continue IV steroid, which is Decadron and continue IV Lasix. Continue nutritional supplement with Ensure and continue oxygen replacement per order. The patient's oxygen level drops significantly with any activity, so we are l imited with what we can do therapy diaz. I have encouraged her to spend much or more time in the cel[place] ir today compared to yesterday. Yesterday, she spent about 6 hours in the chair and I advised her to spend maybe 8-10 hours in chair if possible and that would actually take the pressure off from her s acrococcygeal and buttock region. During the course of day today, she had an episode of low blood pr essure and she responded very well to 250 cc of IV fluid bolus. I will see her tomorrow for followup . DENIS/MODL Voice ID: [id number] Report ID: [id number]
[2023-08-05 05:10] LABS: Absolute Lymphocytes (CBC) 2.1 K/uL (0.7-4.9); Hematocrit 25.7 % (36.0-45.0); Lymphocytes % 8.4 % (15.3-44.8); MCV 92.2 fL (80-100); MPV 7.1 fL (7.6-11.3); Platelets 315 thou/uL (152-406); RBC Red Blood Cell Count 2.79 M/uL (3.86-4.86)
[2023-08-05 05:23] LABS: Albumin 1.7 g/dL (3.4-5.0); Bilirubin Total 0.7 mg/dL (0.2-1.0); Magnesium 2.2 mg/dL (1.6-2.4); Phosphorus 2.8 mg/dL (2.5-4.9); Potassium 3.7 mEq/L (3.5-5.1); Protein, Total 5.9 g/dL (6.4-8.2)
--- NOTE | 2023-08-05 08:19 | RAD REPORT ---
EXAM DESCRIPTION: RAD - Chest Single View - 08/05/2023 7:39 am CLINICAL HISTORY: PNA follow up COMPARISON: Chest Single View dated 08/04/2023; Chest Single View dated 08/04/2023; Chest Single View dated 08/02/2023; Chest Single View dated 08/01/2023; Chest For Pe Angio dated 07/21/2023 FINDINGS: Lines: Right subclavian approach PICC with tip overlying the superior cavoatrial junction . Lungs: Diffusely coarsened interstitium with irregular airspace disease bilaterally. Pleural: No significant pleural effusions or pneumothorax. Cardiac: Similar size and configuration . Mediastinum: Within normal limits. Bones: No acute fractures. ACDF in the cervical spine. Other: None IMPRESSION: No significant change in aeration lungs compared with 08/04/2023. Findings remain consis tent with a multifocal pneumonia.
[2023-08-05] MEDS ORDERED: dexAMETHasone 4 MG/ML VIAL ONE (08:29)
[2023-08-05] MEDS ORDERED: ACETAMINOPHEN 500 MG TAB ONE ×3 (08:29→21:33)
--- NOTE | 2023-08-05 12:19 | P.PN ---
Subjective Date of Service: 08/05/23 Chief Complaint: Bilateral pneumonia respiratory failure No change in patient's condition oxygenation seems to be improving chest x-ray also seems better Review of Systems General: Weakness Respiratory: Shortness of Breath Physical Examination - Vital Signs Temperature: 97.8 F Blood Pressure: 120/63 Pulse: 109 Respirations: 26 Pulse Ox (%): 92 - Physical Exam General: Alert, Oriented x3 Respiratory: Clear to auscultation bilaterally Cardiovascular: No edema, Regular rate/rhythm Assessment And Plan - Current Problems (Diagnosis) (1) ARDS (adult respiratory distress syndrome) Current Visit: Yes Status: Acute Plan: Patient has ARDS diffuse interstitial changes on the chest x-ray to titrate O2 down to a sat of 90% Vapotherm alternating with BiPAP blood gases today show significant hypoxemia we will plan to wean off steroids DC levofloxacin
--- NOTE | 2023-08-05 21:21 | PN ---
Date of Progress Note: 08/05/2023 Subjective: The patient was seen this morning for followup. No new complaints or problems reported by the patient. She was lying in bed. She did use BiPAP all night yesterday. She did spend a lot o f time sitting in the chair at the bedside. She is still having significant problem with hypoxia wit h any activity including talking also she ends up having hypoxia. Today, she did not tolerate gettin g out of bed and to sit in the chair does activity cause lot more hypoxia. Today, she does recover f airly well. Objective: Vital Signs: Reviewed. HEENT: Unremarkable. Lungs: Bilateral good equal air entry. No wheezing. Minimal left base crackles, unchanged from yes terday. Heart: Sounds normal. Abdomen: Soft. Bowel sounds normal. No guarding, rigidity, tenderness, distention. Extremities: No leg edema. Laboratory Data: White count 24.6, hemoglobin 8.6, platelets 315. Sodium 138, potassium 3.7, chlori de 104, bicarb 32, BUN 22, creatinine 0.48, glucose 87, albumin 1.7. Chest x-ray, unchanged from yes terday, which is better compared to day before yesterday. Impression: 1.Pneumonia. 2.ARDS. 3.Acute respiratory failure with hypoxia. 4.Anemia. 5.Generalized weakness. 6.Paroxysmal atrial fibrillation. 7.Debility. 8.Severe malnutrition. Plan: The patient has good appetite. We will continue to encourage her to eat well her 3 meals and use nutritional supplement Ensure per order. She is on Levaquin and we probably will stop this Levaq uin either tomorrow or day after tomorrow. Meropenem and vancomycin were discontinued yesterday. Co catal[place] to follow with Dr. Hernandez from Pulmonary Service. We will continue oxygen replacement thera py. Continue Eliquis for her paroxysmal atrial fibrillation. We are at a point now that we need to start thinking about possibility of sending her to long-term acute care facility because she needs IC U level of care. Along with that, more intense physical therapy because of her severe deconditioning and weakness and she would be a good candidate for long-term acute care facility. Social Service wa s asked to start looking into it and the patient's did call after Social Service communicated with him and details were discussed with him this evening and I will communicate with the patient an d tomorrow. DENIS/DAVIS Voice ID: [id number] Report ID: [id number]
[2023-08-05] MEDS: ALPRAZOLAM 0.25 MG TABLET PO SCH (21:30)
[2023-08-06 05:53] LABS: Absolute Lymphocytes (CBC) 1.9 K/uL (0.7-4.9); Hematocrit 26.6 % (36.0-45.0); Lymphocytes % 7.7 % (15.3-44.8); MCV 92.2 fL (80-100); Platelets 281 thou/uL (152-406); RBC Red Blood Cell Count 2.88 M/uL (3.86-4.86)
[2023-08-06 06:14] LABS: Potassium 4.1 mEq/L (3.5-5.1)
[2023-08-06 06:15] LABS: Albumin 1.7 g/dL (3.4-5.0); Bilirubin Total 0.6 mg/dL (0.2-1.0); Magnesium 2.2 mg/dL (1.6-2.4); Phosphorus 2.4 mg/dL (2.5-4.9); Protein, Total 6.1 g/dL (6.4-8.2)
[2023-08-06] MEDS ORDERED: dexAMETHasone 4 MG/ML VIAL ONE (08:20)
[2023-08-06] MEDS: dexAMETHasone 4 MG/ML VIAL IV SCH (08:29)
[2023-08-06] MEDS ORDERED: ACETAMINOPHEN 500 MG TAB ONE ×3 (08:42→19:53)
[2023-08-06 08:53] LABS: Blood Morphology Comment NOT SEEN (NOT SEEN); Platelet Estimate ADEQ; White Blood Cell Scan OK (OK)
--- NOTE | 2023-08-06 12:13 | P.PN ---
Subjective Date of Service: 08/06/23 Chief Complaint: ARDS Patient is feels weak still short of breath he sat on mild exertion FiO2 on Vapotherm declined to 75% patient complains of a sore mouth Review of Systems General: Weakness Respiratory: Shortness of Breath Physical Examination - Vital Signs Temperature: 97.3 F Blood Pressure: 112/77 Pulse: 80 Respirations: 36 Pulse Ox (%): 93 - Physical Exam General: Alert, Oriented x3, Moderate distress Respiratory: Clear to auscultation bilaterally, Diminished Cardiovascular: No edema, Regular rate/rhythm, Normal S1 S2 Assessment And Plan - Current Problems (Diagnosis) (1) ARDS (adult respiratory distress syndrome) Current Visit: Yes Status: Acute Plan: Patient has ARDS chest x-ray shows diffuse interstitial changes patient's antibiotics and steroids have all been DC'd white count is slightly lower continue with incentive spirometry Vapotherm alternating with BiPAP patient also needs occupational therapy complaining of a sore mouth she may have some thrush and I will order some oral nystatin blood pressure is so far stable
[2023-08-06] MEDS: NYSTATIN 500,000 UNIT/5 ML UDC PO SCH (12:37)
--- NOTE | 2023-08-06 19:47 | PN ---
Date of Progress Note: 08/06/2023 Subjective: The patient was seen this morning for followup. No new complaints or problems reported by the patient. Lying in bed, not in any distress. She was on BiPAP and she used BiPAP all night. Her was with her at bedside. Yesterday, she did not tolerate BiPAP as she dropped her oxygen level significantly low. Objective: Vital signs: Reviewed. She has good appetite. Denies any constipation problem. HEENT: Unremarkable. Lungs: Bilateral good equal air entry with diminished air entry in the lung base with some crackles in the left lung base, unchanged from yesterday. Heart: Sounds normal. Abdomen: Soft. Bowel sounds normal. No guarding, rigidity, tenderness, distention. Extremities: No leg edema. Laboratory Data: White count 24.3, hemoglobin 8.8, platelets 281. Sodium 138, potassium 4.1, chlori de 102, bicarb 34, BUN 20, creatinine 0.50, glucose 98. Liver function tests unremarkable. Albumin 1.7. Impression: 1.Pneumonia. 2.Acute respiratory failure with hypoxia. 3.ARDS. 4.Generalized weakness. 5.Debility. 6.Anemia. 7.Paroxysmal atrial fibrillation. 8.Chronic anticoagulation therapy. Plan: We will continue current Eliquis. The patient's all antibiotic has been discontinued now afte r giving her antibiotics for adequate number of days. She has been on IV steroid which we have lower ed the dose now. She is down to 2 mg IV dexamethasone daily. Continue oxygen supplemental therapy. Continue to follow up with Dr. Hernandez. Continue Eliquis and I did talk to the patient and her hus band both this morning regarding recommendation for her to go to long-term acute care facility as she needs intensive rehab as well as intensive care that can be provided at such facility and she will b e a good candidate for long-term acute care facility. We will work with Social Service as well as in surance approval process will be initiated by Social Service once family decides the choice of facili ty. I will see her tomorrow for followup. DENIS/MODL Voice ID: [id number] Report ID: [id number]
[2023-08-07 05:47] LABS: Albumin 1.8 g/dL (3.4-5.0); Bilirubin Total 0.6 mg/dL (0.2-1.0); Magnesium 2.2 mg/dL (1.6-2.4); Phosphorus 2.9 mg/dL (2.5-4.9); Potassium 3.8 mEq/L (3.5-5.1); Protein, Total 6.6 g/dL (6.4-8.2)
[2023-08-07] MEDS: POTASSIUM 25 MEQ EFFERV TAB PO ONE (06:16)
--- NOTE | 2023-08-07 07:42 | RAD REPORT ---
[facility] CLINICAL HISTORY: pneumonia COMPARISON: Chest Single View dated 08/05/2023; Chest Single View dated 08/04/2023; Chest Single View dated 08/04/2023; Chest Single View dated 08/02/2023 TECHNIQUE: Portable AP view of the chest. FINDINGS: Stable patchy alveolar and interstitial opacities. Right arm PICC unchanged in position. R ightward tracheal deviation which appears more pronounced than on prior exam. This may in part relate to patient rotation. No pneumothorax or effusion. The cardiomediastinal contours are otherwise unch anged. IMPRESSION: More pronounced right tracheal deviation, may at least some relate to patient rotation. Stable patchy opacities as above, concerning for pneumonia.
[2023-08-07] MEDS ORDERED: dexAMETHasone 4 MG/ML VIAL ONE (08:24)
[2023-08-07] MEDS ORDERED: ACETAMINOPHEN 500 MG TAB ONE ×3 (08:34→21:19)
[2023-08-07] MEDS: CLOTRIMAZOLE 10 MG TROCHE PO SCH (08:38)
[2023-08-07] MEDS: POTASSIUM CL SA 10 MEQ TAB PO ONE (08:39)
[2023-08-08] MEDS ORDERED: ACETAMINOPHEN 500 MG TAB ONE ×3 (09:23→21:39)
[2023-08-08] MEDS ORDERED: dexAMETHasone 4 MG/ML VIAL ONE (09:23)
[2023-08-08] MEDS ORDERED: NYSTATIN 100MU/GM CREAM 15GM TOP ONE ×2 (09:23→09:24)
--- NOTE | 2023-08-08 09:32 | P.PN ---
Subjective Date of Service: 08/08/23 Chief Complaint: ARDS No change in patient's condition she still Continues to remain hypoxic and weak has some oral thrush Review of Systems General: Weakness Respiratory: Shortness of Breath Physical Examination - Vital Signs Temperature: 98.6 F Blood Pressure: 96/55 Pulse: 102 Respirations: 28 Pulse Ox (%): 91 - Physical Exam General: Alert, Moderate distress Respiratory: Clear to auscultation bilaterally, Diminished Cardiovascular: No edema, Regular rate/rhythm, Normal S1 S2 Assessment And Plan - Current Problems (Diagnosis) (1) ARDS (adult respiratory distress syndrome) Current Visit: Yes Status: Acute Plan: Patient has ARDS and fortunately there has been no progress made better on BiPAP does experience significant desaturation at night continue with occupational therapy BiPAP alternating with Vapotherm check labs tomorrow will DC IV Decadron now changed to oral famotidine patient is eating and drinking will check labs tomorrow chest x-ray still shows diffuse significant interstitial changes
--- NOTE | 2023-08-08 12:30 | PN ---
Date of Progress Note: 08/07/2023 Subjective: The patient was seen in the morning for followup. She was lying in bed, not in distress . No new complaints or problems reported by her or her who was at bedside. She gets signifi cantly hypoxic with any movement including trying to get up from supine position to sitting position on high-flow nasal cannula oxygen. Her oxygen level drops down, but she tends to recover rather quic kly. Objective: Vital Signs: Reviewed. HEENT: Unremarkable. Lungs: Bilateral equal air entry, little bit slightly better air entry today than yesterday. Minima l left basal crackles. Heart: Sounds normal. Abdomen: Soft. Bowel sounds normal. No guarding, rigidity, tenderness, distention. Extremities: No leg edema. Laboratory Data: Sodium 139, potassium 3.8, chloride 102, bicarb 33, BUN 24, creatinine 0.52, glucos e 78. Liver function tests unremarkable. Serum albumin level 1.8. Chest x-ray, no change compared to previous chest x-ray. Impression: 1.Pneumonia. 2.Acute respiratory failure with hypoxia. 3.ARDS. 4.Severe malnutrition. 5.Paroxysmal atrial fibrillation. 6.Generalized weakness. 7.Debility. 8.Oral candidiasis. Plan: The patient was noted to have significant oral candidiasis and we will start her on clotrimazo le 10 mg 4 times a day and she was instructed to suck on this tablet until it is dissolved in her onesimo th. We will go ahead and continue current oxygen replacement. Her blood pressure is not high enough to give any diuretic therapy like Lasix, which I wanted to give a small dose 20 mg 1 time dose, but we will just keep monitoring her blood pressure if necessary and possible then, we will consider diur etic therapy on an as-needed basis. Continue Eliquis. She is on Decadron 2 mg IV daily which we alex l continue that and she is not on any antibiotics now and there is no reason for her to take any more antibiotics at this point. We will continue to follow with Dr. Hernandez. DENIS/MODL Voice ID: [id number] Report ID: [id number]
--- NOTE | 2023-08-08 12:36 | PN ---
Date of Progress Note: 08/08/2023 Subjective: The patient was seen this morning for followup. No new complaints or problems reported by her. She was lying in bed, not in any distress, and on high-flow nasal cannula oxygen with FiO2 9 0%. She continues to have trouble with relatively more hypoxia during nighttime than daytime and she uses BiPAP and high-flow nasal cannula oxygen alternatively. She has good appetite. No constipatio n. She did have bowel movement yesterday. She is drinking about 3 cans of Ensure on a daily basis. No new complaints or problems reported by her. Physical Examination: Vital Signs: Reviewed. HEENT: Unremarkable. Lungs: Bilateral equal air entry with some minimal left basal rales. Heart: Sounds normal. Abdomen: Soft. Bowel sounds normal. No guarding, rigidity, tenderness, distention. Extremities: No leg edema. Impression: 1.Pneumonia. 2.Acute respiratory failure with hypoxia. 3.ARDS. 4.Paroxysmal atrial fibrillation. 5.Chronic anticoagulation therapy. 6.Severe malnutrition. 7.Generalized weakness. 8.Debility. 9.Oral candidiasis. Plan: We will go ahead and continue current Mycelex per order. We will continue her Eliquis IV ster oid which is Decadron 2 mg IV daily. Continue current oxygen replacement therapy and details were di scussed with Dr. Hernandez and we did talk to the patient regarding possibility of transferring out of ICU to regular room at some point. Right now, she is requiring lot of nursing care that she is not comfortable getting out of ICU, which we totally understand, and we will continue to keep her in ICU because of the level of care she needs, but at some point, once her condition improves and she requir es less care, we will consider to move her out of ICU to regular room. We are still waiting on any d ecision from insurance [employer] regarding long-term acute care facility placement. We will repeat blo od work and chest x-ray tomorrow. I will see her tomorrow for followup. DENIS/MODL Voice ID: [id number] Report ID: [id number]
[2023-08-08] MEDS ORDERED: FAMOTIDINE 20 MG/2 ML VIAL IV ONE (21:49)
[2023-08-08] MEDS ORDERED: FAMOTIDINE 20 MG TAB ONE (21:53)
[2023-08-08] MEDS: FAMOTIDINE 20 MG TAB PO SCH (21:53)
[2023-08-09 05:07] LABS: Absolute Lymphocytes (CBC) 1.7 K/uL (0.7-4.9); Hematocrit 25.8 % (36.0-45.0); Lymphocytes % 8.2 % (15.3-44.8); MCV 91.3 fL (80-100); MPV 7.6 fL (7.6-11.3); Platelets 275 thou/uL (152-406); RBC Red Blood Cell Count 2.82 M/uL (3.86-4.86)
[2023-08-09 05:26] LABS: Magnesium 2.1 mg/dL (1.6-2.4)
[2023-08-09] MEDS ORDERED: ACETAMINOPHEN 500 MG TAB ONE ×3 (07:59→20:29)
[2023-08-09] MEDS ORDERED: FAMOTIDINE 20 MG/2 ML VIAL IV ONE (08:00)
[2023-08-09] MEDS ORDERED: FAMOTIDINE 20 MG TAB ONE ×2 (08:04→20:29)
--- NOTE | 2023-08-09 09:15 | RAD REPORT ---
EXAM DESCRIPTION: Lillie Single View08/09/2023 5:48 am CLINICAL HISTORY: Pneumonia COMPARISON: August 07, 2025 for FINDINGS: Mild worsening in the left and no significant change in the right pulmonary opacities Heart mildly enlarged. PICC line has its tip 1 centimeter into the right atrium IMPRESSION: Mild worsening in left and no significant change in right pulmonary opacities which may represent pneumonia
[2023-08-09] MEDS: METOPROLOL TAR 25 MG TAB ONE (09:48)
[2023-08-09] MEDS: ALPRAZOLAM 0.25 MG TABLET PO ONE (09:50)
[2023-08-09] MEDS: METOPROLOL TAR 25 MG TAB PO SCH (09:50)
--- NOTE | 2023-08-09 11:44 | P.PN ---
Subjective Date of Service: 08/09/23 Chief Complaint: ARDS No change in patient's condition still continues to be hypoxic difficult desaturation off the BiPAP Review of Systems General: Weakness Respiratory: Shortness of Breath Physical Examination - Vital Signs Temperature: 97.4 F Blood Pressure: 121/70 Pulse: 107 Respirations: 31 Pulse Ox (%): 98 - Physical Exam General: Alert, Oriented x3, Moderate distress Respiratory: Clear to auscultation bilaterally Cardiovascular: No edema, Regular rate/rhythm, Normal S1 S2 Assessment And Plan - Current Problems (Diagnosis) (1) ARDS (adult respiratory distress syndrome) Current Visit: Yes Status: Acute Plan: Patient has ARDS continue with BiPAP. Nasogastric tube feeds as has significant desaturation off the BiPAP and it takes her a while to recover currently there was some fever we will do some blood cultures urinalysis x-ray reviewed labs reviewed white count is declining at 20,000 I also started patient on Precedex drip labs chest x-rays all reviewed discussed with the a little tachycardic
--- NOTE | 2023-08-09 14:02 | PN ---
Date of Progress Note: 08/09/2023 Subjective: The patient was seen this morning for followup. Her was with her at bedside. T he patient was on BiPAP and resting well. She did wake up for a brief time and then went back to sle ep. This morning, she was having a lot of trouble with anxiety. Her heart rate had gone up to 120-1 30. Yesterday, she did not tolerate getting out of bed to use the bedside commode and she had lot of difficulty with shortness of breath, tachycardia, hypoxia, so after trying once, she did not get out of the bed anymore. She did have one bowel movement yesterday. She has [employer] for urinary collec tion. This morning prior to my arrival when nurse contacted me because the patient was having lot of anxiety problem Xanax 0.25 mg p.o. x1 dose was ordered. She did not eat her breakfast this morning. I also ordered metoprolol. She was so far ordered to have 25 mg 2 times a day and to hold it if sy stolic blood pressure less than 120, but I changed those parameters today and she was able to get one dose of metoprolol 12.5 mg p.o. When I saw her, her oxygen saturation was 93% to 95%. Heart rate w as around 100 to 106 beats per minute and systolic blood pressure was around 110. She was resting we ll. Objective: Vital Signs: Reviewed. HEENT: Unremarkable. Lungs: Bilateral equal air entry with some increased crackles on the left side today compared to yes terday. Heart: Sounds normal. Abdomen: Soft. Bowel sounds normal. No guarding, rigidity, tenderness, distention. Extremities: No leg edema. Labs: White count 20.4, hemoglobin 8.8, platelets 275. Sodium 138, potassium 4, chloride 100, bicar b 36, BUN 22, creatinine 0.36, glucose 106, magnesium 2.1. Chest x-ray shows bilateral infiltrate. Left-sided infiltrate is worse today than prior chest x-ray. Impression: 1.Pneumonia. 2.Acute respiratory failure with hypoxia. 3.ARDS. 4.Anemia. 5.Generalized weakness. 6.Debility. 7.Paroxysmal atrial fibrillation. 8.Anxiety. 9.Insomnia. Plan: We will continue her Xanax that she takes at nighttime for insomnia and she is responding well to one time dose of Xanax this morning. Dr. Hernandez has started her back on Precedex IV for contro lling her anxiety problem. The patient is on BiPAP and her appetite has gone down in last 24 hours o r so and every time she eats she has to get on high-flow nasal cannula oxygen and that is the time stevenson bird is having hypoxia, so at this point, we will go ahead and try to put Dobbhoff tube back again and p rovide her nutritional support through the Dobbhoff tube. I have encouraged the patient and her husb and that she should try to rest as much as she can today and informed nursing staff not to get her ou t of bed today at all. We will continue current oxygen replacement therapy. Continue Eliquis she ta kes for paroxysmal atrial fibrillation. She had low-grade temperature 99.3 this morning and I did co mmunicate with Dr. Hernandez regarding that and he would like to wait before starting any antibiotics but blood culture and urinalysis, urine culture were ordered. The patient has received strong IV ant ibiotics for long period of time and her antibiotics were discontinued this week. She is sure at [facility] of having infection with resistant bacteria, so that would be our concern and we need to be very ca reful about using antibiotics in somebody like her. If we need to, we will need to consider antifung al medication and antibiotics both, but we will see how she does with her vital signs. Prognosis is poor and I did communicate all the details with the patient's today. DENIS/MODL Voice ID: [id number] Report ID: [id number]
[2023-08-09] MEDS ORDERED: FUROSEMIDE 20 MG/ 2ML VIAL ONE (17:50)
[2023-08-09] MEDS ORDERED: FUROSEMIDE 40 MG/4 ML VIAL ONE (17:50)
[2023-08-09] MEDS: FUROSEMIDE 20 MG/ 2ML VIAL IV ONE (18:05)
[2023-08-09 18:49] LABS: Arterial Blood Carboxyhemoglob 1.3 % (0-1.5); Blood Gas Oxyhemoglobin 94.4 % (94-97); Blood O2 Saturation 97.1 % (92-98.5)
[2023-08-09] MEDS: DEXMEDETOMIDINE HCL 200 MCG in NA CHLORIDE 0.9% 98 ML IV SCH (20:45)
[2023-08-10 05:09] LABS: Absolute Lymphocytes (CBC) 0.9 K/uL (0.7-4.9); Hematocrit 26.3 % (36.0-45.0); Lymphocytes % 4.8 % (15.3-44.8); MCV 91.6 fL (80-100); MPV 7.7 fL (7.6-11.3); Platelets 278 thou/uL (152-406); RBC Red Blood Cell Count 2.87 M/uL (3.86-4.86)
[2023-08-10 05:23] LABS: Albumin 1.8 g/dL (3.4-5.0); Bilirubin Total 0.8 mg/dL (0.2-1.0); Magnesium 2.2 mg/dL (1.6-2.4); Potassium 4.1 mEq/L (3.5-5.1)
--- NOTE | 2023-08-10 07:27 | RAD REPORT ---
EXAM DESCRIPTION: RAD - Chest Single View - 08/10/2023 7:16 am CLINICAL HISTORY: pneumonia COMPARISON: Chest Single View dated 08/09/2023; Chest Single View dated 08/07/2023; Chest Single View dated 08/05/2023; Chest Single View dated 08/04/2023; Chest For Pe Angio dated 07/21/2023 FINDINGS: Lines: PICC tip overlies the distal SVC . Lungs: Widespread airspace disease with diffuse interstitial coarsening is unchanged . Pleural: No significant pleural effusions or pneumothorax. Cardiac: Cardiomegaly . Mediastinum: Within normal limits. Bones: No acute fractures. ACDF in the cervical spine. Other: None IMPRESSION: No significant change in aeration of the lungs with widespread airspace disease.
[2023-08-10] MEDS ORDERED: DEXTROSE 10%-WATER 500 ML IV SCH (08:00)
[2023-08-10] MEDS ORDERED: ACETAMINOPHEN 500 MG TAB ONE (08:25)
[2023-08-10] MEDS ORDERED: FAMOTIDINE 20 MG TAB ONE (08:26)
[2023-08-10] MEDS: AA 5%/D20W/ELECTROLYTES-TPN 2,000 ML IV SCH (09:11)
[2023-08-10] MEDS: FUROSEMIDE 20 MG/ 2ML VIAL IV ONE (09:21)
--- NOTE | 2023-08-10 10:04 | P.PN ---
Subjective Date of Service: 08/10/23 Chief Complaint: ARDS No change in patient's condition unable to tolerate coming off BiPAP Review of Systems General: Weakness Respiratory: Shortness of Breath Physical Examination - Vital Signs Temperature: 97.5 F Blood Pressure: 113/62 Pulse: 113 Respirations: 39 Pulse Ox (%): 91 - Physical Exam General: Alert, Moderate distress Respiratory: Crackles/rales Cardiovascular: No edema, Regular rate/rhythm, Normal S1 S2 Assessment And Plan - Current Problems (Diagnosis) (1) ARDS (adult respiratory distress syndrome) Current Visit: Yes Status: Acute Plan: Patient has ARDS requiring BiPAP agree with increasing EPAP to 12 avoid mechanical ventilation for as long as possible white count is declining will hold antibiotics and steroids for now agree with low doses of diuretics as tolerated x-ray shows still significant bilateral changes
--- NOTE | 2023-08-10 10:05 | P.PN ---
Subjective Date of Service: 08/10/23 Chief Complaint: ARDS No change in patient's condition unable to tolerate coming off BiPAP Physical Examination - Vital Signs Temperature: 97.5 F Blood Pressure: 113/62 Pulse: 113 Respirations: 39 Pulse Ox (%): 91 Assessment And Plan - Current Problems (Diagnosis) (1) ARDS (adult respiratory distress syndrome) Current Visit: Yes Status: Acute Plan: Patient has ARDS requiring BiPAP agree with increasing EPAP to 12 avoid mechanical ventilation for as long as possible white count is declining will hold antibiotics and steroids for now agree with low doses of diuretics as tolerated x-ray shows still significant bilateral changes
[2023-08-10] MEDS ORDERED: ACETAMINOPHEN 650MG/RECT SUPP PR PRN (10:15)
[2023-08-10] MEDS: FLUCONAZOLE 100mg IVPB 100 MG/50 ML BAG IV SCH (12:11)
--- NOTE | 2023-08-10 12:56 | PN ---
Date of Progress Note: 08/10/2023 Subjective: The patient was seen this morning for followup. She was on BiPAP. Her and son were present with her at bedside. Yesterday, she did not tolerate Dobbhoff tube placement and as zechariah se was trying to insert the Dobbhoff tube, the tube was probably in her throat area, and in that shor t time, she became significantly hypoxic, cyanotic and nurse had to terminate the procedure and put h er back on BiPAP, and at that time, we decided to start her on TPN. She has remained on BiPAP since that time. Early this morning, she received her metoprolol, and during that time of administration o f that oral medication with a few sips of water, she also became hypoxic. When I was in room with he r, the patient's Eliquis dose was due for this morning, so while I was there, nurse was asked to go a head and give that oral medication. She was also complaining of dryness of the mouth. So we took th e BiPAP off and give her Eliquis with a few sips of water. She was coughing just little bit at the t suha of swallowing. She was able to swallow this pill successfully without any other difficulty excep t significant hypoxia with oxygen saturation dropping to 58% to 60%, and she was off BiPAP only for a bout 30-60 seconds for this medication to be given, and soon after that, we placed BiPAP back on, and within a minute to 2 minutes, her oxygen saturation came up to 93%. The patient has remained afebri le. Objective: HEENT: Unremarkable. Lungs: Bilateral equal air entry with some presence of rales in lower lung field unchanged. Heart: Sounds normal. Abdomen: Soft. Bowel sounds normal. No guarding, rigidity, tenderness, distention. Extremities: No leg edema. Labs: White count 18.4, hemoglobin 8.8, platelets 270. Sodium 136, potassium 4.1, chloride 97, bica rb 33, BUN 24, creatinine 0.47, glucose 70. Serum albumin 1.8. Impression: 1.Pneumonia. 2.Acute respiratory failure with hypoxia. 3.Adult respiratory distress syndrome. 4.Malnutrition. 5.Paroxysmal atrial fibrillation. 6.Chronic anticoagulation therapy. 7.Anemia, unspecified. Considering the patient having significant hypoxia with medication administration and noted to have s ome trouble with taking oral medication this morning with coughing, it is best not to give her any mo re oral medication and we will keep her NPO right now. TPN was ordered yesterday when we were not ab le to insert Dobbhoff tube and this TPN will be started this morning. We will discontinue all her or al medications since we are going to keep her NPO, and we will start her on Lovenox 60 mg subcutaneou s injection daily instead of Eliquis. We will also start her on Diflucan 100 mg IV daily. Tylenol s uppository was ordered for pain. Continue to follow with Dr. Hernandez. Details were discussed with him as well. Details were discussed with the patient's and son who were at bedside. Overall prognosis is poor, and the patient's did talk to the patient yesterday and informed me that he did have discussion with the patient yesterday in the event if her condition deteriorates and if s he needs to go on a ventilator, she would like to definitely go ahead and consider that if that is ne cessary. I will see her tomorrow for followup. Lasix 10 mg IV x1 dose was ordered today, and chest x-ray today remains unchanged from yesterday. DENIS/MODL Voice ID: [id number] Report ID: [id number]
[2023-08-10 14:43] LABS: Arterial Blood Carboxyhemoglob 1.8 % (0-1.5); Blood Gas Oxyhemoglobin 88.3 % (94-97); Blood O2 Saturation 91.5 % (92-98.5)
[2023-08-10] MEDS: DEXMEDETOMIDINE HCL 1,000 MCG in NA CHLORIDE 0.9% 490 ML IV SCH (15:00)
[2023-08-10 15:35] LABS: Specific Gravity 1.014 (1.005-1.030); Urine Bacteria <20 /HPF (<20); Urine Bilirubin NEGATIVE (Negative); Urine Blood Negative (Negative); Urine Clarity Clear (Clear); Urine Color Light-Yellow (Yellow); Urine Glucose NEGATIVE (Negative); Urine Mucus Slight /HPF (None Seen); Urine Protein TRACE (Negative); Urine RBC <5 /HPF (None Seen); Urine Urobilinogen Normal (Normal)
[2023-08-10] MEDS ORDERED: METOPROLOL TAR 25 MG TAB PO SCH (21:00)
[2023-08-11] MEDS ORDERED: NA CHLORIDE 0.9% 100 ML ONE (04:22)
[2023-08-11] MEDS ORDERED: DEXMEDETOMIDINE HCL 200 MCG/2 ML VIAL ONE (04:22)
[2023-08-11 05:11] LABS: Absolute Lymphocytes (CBC) 0.5 K/uL (0.7-4.9); Hematocrit 24.3 % (36.0-45.0); MCV 92.2 fL (80-100); MPV 7.8 fL (7.6-11.3); Platelets 244 thou/uL (152-406); RBC Red Blood Cell Count 2.64 M/uL (3.86-4.86)
[2023-08-11] MEDS: DEXMEDETOMIDINE HCL 200 MCG in NA CHLORIDE 0.9% 98 ML IV SCH (05:28)
[2023-08-11 05:38] LABS: Albumin 1.6 g/dL (3.4-5.0); Bilirubin Total 0.4 mg/dL (0.2-1.0); Potassium 3.9 mEq/L (3.5-5.1); Protein, Total 6.5 g/dL (6.4-8.2)
[2023-08-11] MEDS ORDERED: D50W 25 GM/50 ML SYRINGE IV PRN (06:53)
[2023-08-11] MEDS ORDERED: GLUCAGON 1 MG/VIAL IM PRN (06:53)
[2023-08-11] MEDS: propofoL 1,000 MG/100 ML VIAL IV ONE (07:27)
[2023-08-11] MEDS ORDERED: NA CHLORIDE 0.9% 1,000 ML ONE (07:40)
[2023-08-11] MEDS ORDERED: AA 5%/D20W/ELECTROLYTES-TPN 2,000 ML, Lipids 20% 250 ML with MULTIVITAMINS INJ 10 ML IV SCH ×2 (08:00→17:00)
[2023-08-11] MEDS ORDERED: IPRATROPIUM BROM 0.5MG/2.5ML ONE ×3 (08:09→14:06)
[2023-08-11] MEDS ORDERED: ALBUTEROL 2.5 MG/3 ML NEB SOL ONE (08:09)
[2023-08-11] MEDS: INSULIN GLARGINE 100 UNIT/ML SQ SCH (08:15)
[2023-08-11] MEDS: AA 5%/D20W/ELECTROLYTES-TPN 2,000 ML IV ONE (08:15)
[2023-08-11] MEDS: propofoL 1,000 MG/100 ML VIAL IV SCH (08:30)
--- NOTE | 2023-08-11 08:34 | P.PN ---
Subjective Date of Service: 08/11/23 Chief Complaint: ARDS Patient's condition has deteriorated she is becoming progressively more dyspneic struggling on BiPAP Review of Systems is unable to be obtained Physical Examination - Vital Signs Temperature: 97.0 F Blood Pressure: 138/68 Pulse: 114 Respirations: 38 Pulse Ox (%): 86 - Physical Exam General: Severe distress Respiratory: Clear to auscultation bilaterally, Diminished, Crackles/rales Cardiovascular: No edema, Regular rate/rhythm, Normal S1 S2 Assessment And Plan - Current Problems (Diagnosis) (1) ARDS (adult respiratory distress syndrome) Current Visit: Yes Status: Acute Plan: Respiratory failure prognosis poor patient's condition has worsened in no improvement she is become progressively more dyspneic tachypneic plan to intubate the patient discussed with Dr. Ibarra labs reviewed white count is declining prognosis poor will resume tube feeds so far cultures are negative patient has oral thrush
[2023-08-11] MEDS ORDERED: CISATRACURIUM INJECTION 2 MG/ML (10 ML Vial) IV PRN (08:50)
[2023-08-11] MEDS: CISATRACURIUM INJECTION 2 MG/ML (10 ML Vial) IV ONE (09:02)
[2023-08-11 09:03] LABS: Blood Morphology Comment NOTED (NOT SEEN); Platelet Estimate ADEQ; Polychromasia 1+
[2023-08-11] MEDS: IPRATROPIUM BROM 0.5MG/2.5ML NEB PRN (09:15)
[2023-08-11] MEDS: ALBUTEROL 2.5 MG/3 ML NEB SOL NEB PRN (09:15)
--- NOTE | 2023-08-11 09:29 | RAD REPORT ---
EXAM DESCRIPTION: Lillie Single View08/11/2023 9:17 am CLINICAL HISTORY: Device placement endotracheal tube placement IMPRESSION: An endotracheal tube has been retracted. It is in good position at the level of the aort ic arch and 2.5 centimeters above the shaheen
--- NOTE | 2023-08-11 09:30 | RAD REPORT ---
EXAM DESCRIPTION: Lillie Single View08/11/2023 9:17 am CLINICAL HISTORY: Device placement endotracheal tube placement IMPRESSION: An endotracheal tube has been inserted with its tip 1 centimeter above shaheen
[2023-08-11] MEDS: HYDROMORPHONE HCL 2 MG/ML inj IV PRN (10:12)
[2023-08-11] MEDS: ENOXAPARIN 60 MG/0.6 ML SQ SCH (11:58)
[2023-08-11] MEDS: INSULIN REGULAR (HUMAN) 100 UNIT/ML SQ SCH (11:58)
[2023-08-11] MEDS: NA CHLORIDE 0.9% 500 ML IV ONE ×2 (13:04→14:15)
[2023-08-11 13:28] LABS: Arterial Blood Carboxyhemoglob 0.9 % (0-1.5); Blood Gas Oxyhemoglobin 90.3 % (94-97); Blood O2 Saturation 92.9 % (92-98.5)
[2023-08-11 13:31] LABS: Arterial Blood Carboxyhemoglob 1.3 % (0-1.5); Blood Gas Oxyhemoglobin 92.6 % (94-97); Blood O2 Saturation 95.5 % (92-98.5)
[2023-08-11] MEDS ORDERED: SUCCINYLCHOLINE 20 MG/ML (10 ML) IV ONE (14:48)
[2023-08-11] MEDS ORDERED: NOREPINEPHRINE BITARTRATE/D5W 4 MG/250 ML BAG IV ONE (15:11)
[2023-08-11] MEDS: NOREPINEPHRINE BITARTRATE/D5W 4 MG/250 ML BAG IV SCH (15:12)
[2023-08-11 15:36] LABS: Arterial Blood Carboxyhemoglob 1.2 % (0-1.5); Blood Gas Oxyhemoglobin 86.9 % (94-97); Blood O2 Saturation 89.5 % (92-98.5)
[2023-08-11] MEDS ORDERED: INSULIN REGULAR (HUMAN) 100 UNIT/ML ONE (17:22)
[2023-08-11] MEDS: AA 5%/D20W/ELECTROLYTES-TPN 2,000 ML, Lipids 20% 250 ML with MULTIVITAMINS INJ 10 ML IV SCH (17:27)
[2023-08-11 19:21] LABS: Arterial Blood Carboxyhemoglob 1.4 % (0-1.5); Blood O2 Saturation 91.8 % (92-98.5)
[2023-08-11 20:03] LABS: Magnesium 2.3 mg/dL (1.6-2.4); Potassium 4.6 mEq/L (3.5-5.1)
[2023-08-11 20:21] LABS: Absolute Lymphocytes (CBC) 1.2 K/uL (0.7-4.9); Lymphocytes % 6.7 % (15.3-44.8); MCV 95.7 fL (80-100); Platelets 275 thou/uL (152-406); RBC Red Blood Cell Count 2.62 M/uL (3.86-4.86)
--- NOTE | 2023-08-11 21:03 | PN ---
Date of Progress Note: 08/11/2023 Subjective: The patient was seen this morning for followup and when I saw her, her condition appeare d to be worse compared to yesterday. She was very lethargic. She opened her eyes, but did not commu nicate, was extremely tachypneic. Vital signs reviewed. was at bedside and details were dis cussed with regarding her condition and I was very much concerned about her condition as it d eteriorated in last 24 hours and informed the patient's that it is time for patient to get on life support machine and he understands and the patient wants everything done, so soon, after I saw her, I contacted Dr. Hernandez and he evaluated and intubated the patient this morning. I saw her onc e this morning prior to intubation early this morning and second time I saw her this evening. When I saw her this evening, the patient was on ventilator. Her and son, they were both present wi th her. Objective: Vital Signs: Reviewed. HEENT: Unremarkable. Lungs: Bilateral diminished, but equal air entry. No wheezing. No rales. Heart: Sounds normal. Abdomen: Soft. Bowel sounds normal. No guarding, rigidity, tenderness, distention. Extremities: No leg edema. Laboratory Data: This morning, white count was 13.2, hemoglobin was 8, and platelet count 244. Sodi um 138, potassium 3.9, chloride 102, bicarb 35, BUN 22, creatinine 0.42, glucose 208. The patient liu d multiple arterial blood gases done today. The first arterial blood gas today had shown pH 6.86, pC O2 202, PO2 120, on 100% FiO2 and last ABG, pH 7.02, pCO2 128, PO2 78, on 70% FiO2. Chest x-ray shows extensive bilateral pulmonary opacities. Impression: 1.ARDS. 2.Acute respiratory failure with hypoxia. 3.Shock. 4.Anemia. 5.Paroxysmal atrial fibrillation. 6.Malnutrition. Plan: We will go ahead and continue Lovenox per order. We will continue to follow up with Dr. Hilda butcher for ventilator management. The patient had extremely low blood pressure this afternoon and she w as given total of 1 L of IV fluid bolus and her blood pressure did come up, but still her systolic bl ood pressure was around 70-75 with mean arterial blood pressure around 62 or so and at that time, aft er a second IV fluid bolus, nurse was advised to go ahead and start the patient on Levophed drip and maintain systolic blood pressure more than 90. Since Levophed drip was started, the patient's blood pressure has improved. This evening when I saw her, her systolic blood pressure was around 102. She had about 250 cc of urine output for this shift. She is receiving TPN and is tolerating that well. Blood glucose was elevated this morning and I did order insulin 10 units of long-acting insulin vasiliy y in morning and sliding scale insulin every 6 hours. I have ordered another set of blood work to be done this evening and we will repeat blood work tomorrow morning as well. Overall, prognosis is mirela y poor. Details were discussed with the patient's and son who was at bedside. DENIS/MODL Voice ID: [id number] Report ID: [id number]
[2023-08-12 05:28] LABS: Absolute Lymphocytes (CBC) 1.3 K/uL (0.7-4.9); Hematocrit 25.5 % (36.0-45.0); MCV 96.9 fL (80-100); MPV 7.8 fL (7.6-11.3); Platelets 313 thou/uL (152-406); RBC Red Blood Cell Count 2.63 M/uL (3.86-4.86)
[2023-08-12 05:34] LABS: Arterial Blood Carboxyhemoglob 1.4 % (0-1.5); Blood Gas Oxyhemoglobin 83.5 % (94-97); Blood O2 Saturation 86.3 % (92-98.5)
[2023-08-12 05:44] LABS: Magnesium 2.6 mg/dL (1.6-2.4); Phosphorus 7.4 mg/dL (2.5-4.9); Potassium 5.4 mEq/L (3.5-5.1)
[2023-08-12] MEDS: NA CHLORIDE 0.9% 500 ML ONE (06:32)
[2023-08-12] MEDS: NA CHLORIDE 0.9% 500 ML IV PRN (06:35)
[2023-08-12] MEDS ORDERED: INSULIN GLARGINE 100 UNIT/ML SQ ONE (07:48)
[2023-08-12] MEDS ORDERED: ALBUTEROL 2.5 MG/3 ML NEB SOL ONE ×3 (08:01→17:26)
[2023-08-12] MEDS ORDERED: IPRATROPIUM BROM 0.5MG/2.5ML ONE (08:01)
[2023-08-12] MEDS ORDERED: LORazepam 2 MG/ML VIAL IV PRN (08:24)
[2023-08-12] MEDS ORDERED: LORazepam 2 MG/ML VIAL ONE (09:57)
[2023-08-12] MEDS: LORazepam 2 MG/ML VIAL IV PRN (10:24)
[2023-08-12 10:26] LABS: Arterial Blood Carboxyhemoglob 1.4 % (0-1.5); Blood Gas Oxyhemoglobin 89.1 % (94-97); Blood O2 Saturation 92.2 % (92-98.5)
[2023-08-12 11:03] LABS: Blood O2 Saturation 90.1 % (92-98.5)
--- NOTE | 2023-08-12 12:29 | P.PN ---
Subjective Date of Service: 08/12/23 Chief Complaint: ARDS/failure on a ventilator Patient condition is not very GERD she continues to remain significantly hypoxic hypercapnic difficult to ventilate the patient is sedated very hypercapnic we use different modes with no significant effect still shows some diffuse changes Review of Systems is unable to be obtained Physical Examination - Vital Signs Temperature: 98.4 F Blood Pressure: 96/49 Pulse: 103 Respirations: 25 Pulse Ox (%): 94 - Physical Exam General: Unresponsive Respiratory: Clear to auscultation bilaterally, Diminished Cardiovascular: No edema, Regular rate/rhythm, Normal S1 S2 Assessment And Plan - Current Problems (Diagnosis) (1) ARDS (adult respiratory distress syndrome) Current Visit: Yes Status: Acute Plan: Prognosis poor patient is now DO NOT RESUSCITATE currently patient is on assist- control rate of 25 PEEP of 10 hypercarbic currently hypoxic chest x-ray no change diffuse changes DNR function is slightly worse mildly hyperkalemic and off the propofol Dilaudid and Ativan white count is stable prognosis poor will try to 24 hours high doses of steroids as she does help her oxygenation
[2023-08-12] MEDS ORDERED: dexAMETHasone 4 MG/ML VIAL ONE ×2 (12:32→19:27)
[2023-08-12] MEDS: dexAMETHasone 10 MG/ML VIAL IV SCH (12:36)
[2023-08-12] MEDS ORDERED: NOREPINEPHRINE BITARTRATE/D5W 4 MG/250 ML BAG IV ONE ×2 (12:42→17:37)
[2023-08-12] MEDS ORDERED: CALCIUM GLUCONATE 1 GM IVPB 1 GM/50 ML BAG IV ONE ×2 (15:50→17:16)
[2023-08-12] MEDS: CALCIUM GLUCONATE 1 GM IVPB 1 GM/50 ML BAG IV ONE ×2 (16:09→17:32)
[2023-08-12] MEDS ORDERED: SODIUM BICARB 50 MEQ/50ML VIAL ONE ×2 (16:12→17:15)
[2023-08-12] MEDS: SODIUM BICARB 50 MEQ/50ML VIAL IV ONE ×2 (16:13→17:32)
[2023-08-12] MEDS ORDERED: dexAMETHasone 4 MG/ML VIAL IV SCH (17:00)
[2023-08-12 17:07] LABS: Potassium 6.6 mEq/L (3.5-5.1)
[2023-08-12] MEDS: ALBUTEROL 2.5 MG/3 ML NEB SOL NEB ONE (17:30)
[2023-08-12] MEDS: AA 5%/D20W/ELECTROLYTES-TPN 2,000 ML IV SCH (17:31)
--- NOTE | 2023-08-12 18:35 | RAD REPORT ---
EXAM DESCRIPTION: RAD - Abdomen 1 View (KUB) - 08/12/2023 6:28 pm CLINICAL HISTORY: dobhoff Pain COMPARISON: Abdomen 1 View (KUB) dated 07/27/2023 FINDINGS: Tip of the enteric tube is in the stomach.
[2023-08-12] MEDS ORDERED: SOD POLYSTYREN SUL 15 GM/60 ML UCUP FT ONE (18:41)
[2023-08-12] MEDS ORDERED: NA CHLORIDE 0.9% 500 ML ONE (19:28)
[2023-08-12] MEDS: NA CHLORIDE 0.9% 500 ML IV ONE (19:30)
[2023-08-12] MEDS: dexAMETHasone 4 MG/ML VIAL IV SCH (19:31)
[2023-08-12 20:18] VITALS: O2SAT 94
[2023-08-12] MEDS: NOREPINEPHRINE 8 MG in Dextrose 5%-Water 492 ML IV SCH (21:18)
--- NOTE | 2023-08-12 21:48 | PN ---
Date of Progress Note: 08/12/2023 Subjective: The patient was seen this morning for followup. The patient was in ICU on ventilator. No new complaints or problems reported overnight. Her urine output is poor. The patient remains on ventilator and it is being managed by Dr. Hernandez. Objective: Vital Signs: Reviewed. General: On physical exam, the patient remains unresponsive. HEENT: Unremarkable. Lungs: Bilateral equal air entry. No rales. No wheezing. Heart: Sounds normal. Abdomen: Soft. Bowel sounds normal. No guarding, rigidity, tenderness, distention. Extremities: No leg edema. Laboratory Data: White count 18.4, hemoglobin 7.9, platelets 313. Sodium 135, potassium 5.4, chlori de 102, bicarb 31, BUN 53, creatinine 1.73, glucose 170. Impression: 1.Acute renal failure. 2.Acute respiratory failure with hypoxia. 3.Shock. 4.Pneumonia. 5.ARDS. 6.Hyperkalemia. Plan: We will continue to follow with Dr. Hernandez for ventilator management. IV fluid bolus was or dered this morning. The patient is receiving TPN for nutritional support and also ordered calcium gl uconate and sodium bicarbonate this morning. Later this afternoon, we did order another chemistry an d potassium has gone up to 6.6, and BUN and creatinine also has gone up compared to this morning. Se cond dose of calcium gluconate and sodium bicarbonate IV was ordered and Dobhoff tube was placed and once we verify position, the patient will receive Lokelma 10 mg per Dobhoff tube every 8 hours x3 dos es. This morning, I communicated with the patient's son as well as the patient's who were at bedside. All the details were discussed with him and he brought up discussion regarding CPR and laurita ctric shocks in case of cardiac arrest and the patient's prognosis is very poor and likelihood of tho se measures of any meaningful benefit is very small. So with that in mind, subsequently the patient' s ordered for do not resuscitate in place. This evening, I went back to check on her and ano ther IV fluid bolus was ordered because of anuria. She had only 10 cc of urine output all throughout the day today and considering creatinine has gone up this evening. Prognosis is very poor and the noreen bradshaw's son was there this evening and I communicated with him also. DENIS/MODL Voice ID: [id number] Report ID: [id number]
[2023-08-13] MEDS ORDERED: INSULIN REGULAR (HUMAN) 100 UNIT/ML ONE (00:29)
[2023-08-13] MEDS: SODIUM ZIRCONIUM CYCLOSILICATE 10 GM/PKT FT SCH (00:32)
[2023-08-13] MEDS ORDERED: NA CHLORIDE 0.9% 1,000 ML ONE (01:23)
[2023-08-13] MEDS: NA CHLORIDE 0.9% 1,000 ML IV ONE (01:24)
[2023-08-13 02:30] VITALS: TEMP 98
[2023-08-13] MEDS ORDERED: NOREPINEPHRINE BITARTRATE/D5W 4 MG/250 ML BAG IV ONE (03:26)
[2023-08-13] MEDS ORDERED: NOREPINEPHRINE 4 MG in D5W 250 ML IV SCH (04:00)
[2023-08-13] MEDS ORDERED: VASOPRESSIN 80 UNIT in NA CHLORIDE 0.9% 250 ML IV SCH (04:00)
[2023-08-13] MEDS ORDERED: NA CHLORIDE 0.9% 1,000 ML IV SCH (04:00)
[2023-08-13 04:04] VITALS: BP 74/46
--- NOTE | 2023-08-13 20:48 | DS ---
Date of Discharge: 08/13/2023 Disposition: The patient early this morning. Laboratory Data: Last CBC, from yesterday: White count 18.4, hemoglobin 7.9, and platelets 313. Up on admission on 07/20/2023, white count 9.5, hemoglobin 10.9, platelets 261. The highest WBC count w as 28.10 on 08/04/2023. Last blood gas, yesterday: pH 6.9, pCO2 124, pO2 91.7. Last chemistry, yes terday: Sodium 131, potassium 6.6, chloride 100, bicarb 30, BUN 72, creatinine 2.68, glucose 197. I nitial chemistry: Sodium 133, potassium 3.7, chloride 101, bicarb 28, BUN 16, creatinine 0.78, gluco se 145. Initial troponin 51, second troponin 118, third troponin 94, and last troponin 71. Hospital Course: This is a 73-year-old pleasant female patient, admitted to the hospital with cough, congestion, and shortness of breath. Please see dictated H and P for more information. The patient 's influenza A and B, and COVID test were negative in the emergency room and chest x-ray had show pne umonia. The patient was admitted to the hospital with pneumonia, acute respiratory failure with hypo fabiano secondary to pneumonia. Her cardiac enzymes were slightly elevated, and she had a brief episode of paroxysmal atrial fibrillation in the emergency room, so Dr. Banks evaluated her. She had echoca rdiogram done, which showed normal ejection fraction and Dr. Banks started her on Eliquis, and she r emained on anticoagulation therapy throughout this hospitalization. The patient was also seen in [facility] by pulmonary physician, Dr. Hernandez. The patient's pneumonia problem unfortunately got wo rse. She received multiple different IV antibiotics, including vancomycin, meropenem, doxycycline, L evaquin, etc. After adequate number of IV antibiotic therapy, Dr. Hernandez recommended to discontinu e her antibiotic therapy, so approximately about 10 days of IV antibiotic therapy after that, therapy was completed and antibiotics were discontinued at different times. She also received steroid in th e form of dexamethasone, which was after first several days we started to taper off the dose and even tually that was discontinued. Her pneumonia problem was pretty extensive from bilateral pneumonia, w hich got worse, slightly better at some point, but then continued to get worse later on to the extent that with her respiratory failure, she became more and more hypoxic, required BiPAP therapy along wi th oxygen replacement therapy. This week on Friday, which is on August 11, 2023, she required intub ation and remained on ventilator for rest of this hospital stay. After intubation, she started havin g acute kidney failure, hyperkalemia. IV fluid bolus was given. She was given treatment for hyperka lemia also in form of IV calcium gluconate, sodium bicarbonate, and Lokelma. She was started on vaso pressor medication, Levophed, for hypotension problem due to shock. IV fluid boluses were given. Ab out a week ago or so, she was started on enteral nutritional support after putting Dobbhoff tube and once her condition was stable, her Dobbhoff tube was discontinued and she continued to eat by mouth u ntil last few days that she was not able to because of significant hypoxia and TPN was started. Dobb jacque tube was reinserted couple of days ago. Yesterday, the patient's made decision of Do No t Resuscitate. Sometime early this morning, the patient became bradycardic and then went into asysto le, and early this morning. Final Diagnoses: 1.Pneumonia. 2.Acute respiratory distress syndrome. 3.Acute respiratory failure with hypoxia. 4.Acute renal failure. 5.Hyperkalemia. 6.Anemia, unspecified. 7.Stage II sacrococcygeal decubitus. 8.Severe malnutrition. 9.Shock. 10.Primary biliary cirrhosis. 11.Hypothyroidism. 12.Hypertension. 13.Hyperlipidemia. 14.Gastroesophageal reflux disease. DENIS/MODL Voice ID: [id number] Report ID: [id number]
== END 2023-08-13 06:54 | disposition expired | DRG 208 ==
LOC: ER 21:44 → ERHOLD 23:00 → 2ND 07-21 20:01 → 3RD-ICU 07-27 08:50
PROVIDERS: ADMIT Internal Medicine; ATTEND Internal Medicine
PROC: 4A033R1 Measurement of Arterial Saturation, Peripheral, Percutaneous Approach (ICD-10-PCS; 2023-07-20)
PROC: 5A09557 Assistance with Respiratory Ventilation, Greater than 96 Consecutive Hours, Continuous Positive Airway Pressure (ICD-10-PCS; 2023-07-20)
PROC: 02HV33Z Insertion of Infusion Device into Superior Vena Cava, Percutaneous Approach (ICD-10-PCS; 2023-08-01)
PROC: 3E043XZ Introduction of Vasopressor into Central Vein, Percutaneous Approach (ICD-10-PCS; 2023-08-01)
PROC: 3E0436Z Introduction of Nutritional Substance into Central Vein, Percutaneous Approach (ICD-10-PCS; 2023-08-01)
PROC: 0T9B70Z Drainage of Bladder with Drainage Device, Via Natural or Artificial Opening (ICD-10-PCS; 2023-08-10)
PROC: 5A1945Z Respiratory Ventilation, 24-96 Consecutive Hours (ICD-10-PCS; principal; 2023-08-11)
PROC: 0BH17EZ Insertion of Endotracheal Airway into Trachea, Via Natural or Artificial Opening (ICD-10-PCS; 2023-08-11)
DX: J18.9 Pneumonia, unspecified organism (principal); A41.9 Sepsis, unspecified organism; E43 Unspecified severe protein-calorie malnutrition; J80 Acute respiratory distress syndrome; R65.20 Severe sepsis without septic shock; R64 Cachexia; N17.9 Acute kidney failure, unspecified; I24.89 Other forms of acute ischemic heart disease; B37.0 Candidal stomatitis; R57.9 Shock, unspecified; E03.9 Hypothyroidism, unspecified; I48.0 Paroxysmal atrial fibrillation; D64.9 Anemia, unspecified; E78.5 Hyperlipidemia, unspecified; K75.4 Autoimmune hepatitis; E87.6 Hypokalemia; I08.1 Rheumatic disorders of both mitral and tricuspid valves; E87.5 Hyperkalemia; G47.00 Insomnia, unspecified; K74.3 Primary biliary cirrhosis; L89.152 Pressure ulcer of sacral region, stage 2; K21.9 Gastro-esophageal reflux disease without esophagitis; Z66 Do not resuscitate; Z23 Encounter for immunization; Z78.1 Physical restraint status; Z88.5 Allergy status to narcotic agent; Z88.8 Allergy status to other drugs, medicaments and biological substances; Z11.52 Encounter for screening for COVID-19; Z98.51 Tubal ligation status; Z79.01 Long term (current) use of anticoagulants; Z90.49 Acquired absence of other specified parts of digestive tract; Z68.23 Body mass index [BMI] 23.0-23.9, adult; Z79.890 Hormone replacement therapy; Z79.899 Other long term (current) drug therapy
CPT/HCPCS: 0240U; 36415; 36600; 71045; 71275; 74018; 80048; 80053; 80076; 80202; 81001; 82805; 82947; 83605; 83690; 83735; 83880; 84100; 84145; 84443; 84484; 85025; 85027; 85610; 87040; 87070; 87086; 87088; 87205; 90471; 90732; 93005; 93306; 94002; 94003; 94640; 94660; 94760; 97110; 97161; 97165; 97530; 99285; J0612; J0696; J1100; J1160; J1170; J1450; J1650; J1720; J1815; J1940; J2185; J2704; J3475; J3480; J7030; J7040; J7050; J7060; J7613; J7614; J7644; Q9967